=== PATIENT | female | born 1935 | race Caucasian/White ===

== ENCOUNTER 2016-12-05 15:58 | Emergency (ER) | payer OTHER ==
[~2016-12-05] VITALS: Ht 165.1 cm; Wt 63.8 kg
[2016-12-05 16:25] VITALS: TEMP 36.7; Ht 165.1 cm; Wt 63.8 kg
[2016-12-05 16:45] VITALS: O2SAT 96
[2016-12-05] MEDS ORDERED: METOPROLOL TARTRATE 25 MG TAB PO ONE (17:00)
[2016-12-05 17:07] LABS: BASO % 0.4 %; BASO ABS # 0.03 K/uL (0-0.2); COMPLETE YES; EOS % 2.5 %; HEMATOCRIT 43.1 % (37-47); IG% 0.3 %; LYMPH % 37.8 %; LYMPH ABS # 2.97 K/uL (1.2-3.4); MEAN CELL VOLUME 86.4 fL (80-100); MEAN CORPUSCULAR HEMOGLOBIN 29.5 pg (25-34); MEAN CORPUSCULAR HGB CONC 34.1 g/dl (32-36); MEAN PLATELET VOLUME 10.2 fL (7.4-10.4); MONO % 6.2 %; NEUT % 52.8 %; PLATELET COUNT 236 K/uL (130-400); RED BLOOD COUNT 4.99 M/uL (4.2-5.4); WHITE BLOOD COUNT 7.86 K/uL (4.8-10.8)
[2016-12-05] MEDS ORDERED: CYNI1000 INJ (17:07)
[2016-12-05] MEDS ORDERED: TRAV0.00 OPB (17:07)
[2016-12-05] MEDS ORDERED: LISI20TA3 PO (17:07)
[2016-12-05] MEDS ORDERED: LEVO75TA5 PO (17:07)
[2016-12-05] MEDS ORDERED: CHOL1000 PO (17:07)
[2016-12-05] MEDS ORDERED: ASPI81TA28 PO (17:07)
[2016-12-05 17:14] LABS: BLOOD UREA NITROGEN 18 mg/dl (7-18); BUN/CREATININE RATIO 17.8 (10-20); CALCIUM 9.4 mg/dl (8.5-10.1); CARBON DIOXIDE 25 mmol/L (21-32); CHLORIDE 105 mmol/L (98-107); CREATININE 0.99 mg/dl (0.60-1.20); GLUCOSE 148 mg/dl (70-99); POTASSIUM 3.9 mmol/L (3.5-5.1); SODIUM 138 mmol/L (136-145)
[2016-12-05 17:24] LABS: CKMB/CK RATIO 1.3 (0-3.0)
--- NOTE | 2016-12-05 17:29 | DIAGNOSTIC IMAGING REPORT ---
CHEST ONE VIEW PORTABLE HISTORY: 81 years-old Female Evaluate Fever/Sepsis COMPARISON: None available TECHNIQUE: Portable upright AP view of the chest FINDINGS: Cardiac silhouette is upper limits of normal. There is atherosclerosis of the aorta. Mild pulmonary vascular congestion is noted with background interstitial coarsening. There is no pneumothorax. There is mild blunting of the bilateral costophrenic angles. There are patchy alveolar opacities of the medial right and lateral left lung base. Bones are mildly demineralized appear grossly intact. IMPRESSION: 1. Upper limits of normal heart size is present with mild pulmonary vascular congestion and background interstitial coarsening suspicious for pulmonary edema. 2. Patchy alveolar opacities of the lung bases suggest atelectasis or pneumonia with trace effusions. The above report was generated using voice recognition software. It may contain grammatical, syntax or spelling errors. Electronically signed by: Abiel Sequeira M.D. 12/05/2016 5:28 PM Dictated Date/Time: 12/05/2016 5:26 PM
[2016-12-05 17:44] LABS: PROTHROMBIN TIME (PATIENT) 10.7 SECONDS (9.0-12.0)
[2016-12-05] MEDS ORDERED: METOPROLOL TARTRATE 50 MG TAB ONE (18:00)
[2016-12-05] MEDS ORDERED: METO25TA56 PO (18:10)
--- NOTE | 2016-12-05 18:11 | EMERGENCY ROOM VISIT NOTE ---
History Report prepared by Kevin: Bin Trujillo Under the Supervision of: Dr. Keyon Ricci D.O. First contact with patient: 16:12 Stated Complaint: DIZZY/TACHY History of Present Illness The patient is a 81 year old female who presents to the Emergency Room with complaints of dizziness that occurred 1 hour ago. The patient has a history of SVT. She has experienced this intermittently for about a year and a half. She was placed on a Heart Monitor in the past, but it was negative and could never catch an episode. Earlier today, the patient was walking around the mall with her daughter. All of the sudden, she began to feel very dizzy. She sat down and her daughter checked her pulse. She states that it was around 200. She then called the ambulance. Per EMS, the patient's ECG prior to arrival revealed SVT at 230. Per the patient she states that she does not get dizzy very often. She is currently in sinus rhythm. They state that the episode was about 20 minutes long. She is currently taking medication for her thyroid and ASA. She denies any symptoms at this time. Source of History: patient Onset: 1 hour ago Position: other (Global) Symptom Intensity: moderate Quality: other (Dizzy) Timing: resolved Associated Symptoms: No chest pain, No SOB Note: She denies any symptoms at this time. At the time, she felt her heart racing and lightheaded. Review of Systems See HPI for pertinent positives & negatives. A total of 10 systems reviewed and were otherwise negative. Family History Omitted secondary to the patient's age. Social History Smoking Status: Never Smoker Smokeless Tobacco Use: No Alcohol Use: none Drug Use: none Occupation Status: retired Current/Historical Medications Scheduled Aspirin (Aspirin Ec), 81 MG PO DAILY Cholecalciferol (Vitamin D3), 2,000 UNITS PO DAILY Cyanocobalamin (Cyanocobalamin), 1,000 MCG INJ MONTHLY Levothyroxine Sodium (Levothyroxine Sodium), 75 MCG PO DAILY Lisinopril (Prinivil), 20 MG PO DAILY Metoprolol Tartrate (Lopressor) (Lopressor), 0.5 TAB PO BID Travoprost (Travatan Z), 1 DROPS OPB QPM Allergies Coded Allergies: Statins (Unverified Adverse Reaction, Severe, muscle pain, 12/05/16) Risedronate (Unverified Adverse Reaction, Intermediate, loss of tooth, ) Physical Exam Vital Signs Date Time Temp Pulse Resp B/P (MAP) Pulse Ox O2 Delivery O2 Flow Rate FiO2 12/05/16 18:15 67 18 147/73 97 12/05/16 16:45 96 Room Air 12/05/16 16:35 81 12/05/16 16:25 36.7 76 18 160/66 98 Room Air Physical Exam CONSTITUTIONAL/VITAL SIGNS: Reviewed / noted above. GENERAL: Non-toxic in appearance. INTEGUMENTARY: Warm, dry, and [place]. HEAD: Normocephalic. EYES: without scleral icterus or trauma. ENT/OROPHARYNX: clear and moist. LYMPHADENOPATHY/NECK: Is supple without lymphadenopathy or meningismus. RESPIRATORY: Lungs clear and equal. CARDIOVASCULAR: Regular rate and rhythm. GI/ABDOMEN: Soft and nontender. No organomegaly or pulsatile mass. No rebound or guarding. Normal bowel sounds. EXTREMITIES: Warm and well perfused. BACK: No CVA tenderness. NEUROLOGICAL: Intact without focal deficits. PSYCHIATRIC: normal affect. MUSCULOSKELETAL: Normally developed with good muscle tone. Medical Decision & Procedures ER Provider Diagnostic Interpretation: Radiology results as stated below per my review and radiologist interpretation: CHEST ONE VIEW PORTABLE HISTORY: 81 years-old Female Evaluate Fever/Sepsis COMPARISON: None available TECHNIQUE: Portable upright AP view of the chest FINDINGS: Cardiac silhouette is upper limits of normal. There is atherosclerosis of the aorta. Mild pulmonary vascular congestion is noted with background interstitial coarsening. There is no pneumothorax. There is mild blunting of the bilateral costophrenic angles. There are patchy alveolar opacities of the medial right and lateral left lung base. Bones are mildly demineralized appear grossly intact. IMPRESSION: 1. Upper limits of normal heart size is present with mild pulmonary vascular congestion and background interstitial coarsening suspicious for pulmonary edema. 2. Patchy alveolar opacities of the lung bases suggest atelectasis or pneumonia with trace effusions. The above report was generated using voice recognition software. It may contain grammatical, syntax or spelling errors. Electronically signed by: Abiel Sequeira M.D. 12/05/2016 5:28 PM Dictated Date/Time: 12/05/2016 5:26 PM Laboratory Results 12/05/16 14:50 Red Blood Count 4.99, Mean Corpuscular Volume 86.4, Mean Corpuscular Hemoglobin 29.5, Mean Corpuscular Hemoglobin Concent 34.1, Mean Platelet Volume 10.2, Neutrophils (%) (Auto) 52.8, Lymphocytes (%) (Auto) 37.8, Monocytes (%) (Auto) 6.2, Eosinophils (%) (Auto) 2.5, Basophils (%) (Auto) 0.4, Neutrophils # (Auto) 4.15, Lymphocytes # (Auto) 2.97, Monocytes # (Auto) 0.49, Eosinophils # (Auto) 0.20, Basophils # (Auto) 0.03 12/05/16 14:50 Test 12/05/16 14:50 12/05/16 17:23 White Blood Count 7.86 K/uL (4.8-10.8) Red Blood Count 4.99 M/uL (4.2-5.4) Hemoglobin 14.7 g/dL (12.0-16.0) Hematocrit 43.1 % (37-47) Mean Corpuscular Volume 86.4 fL (80-100) Mean Corpuscular Hemoglobin 29.5 pg (25-34) Mean Corpuscular Hemoglobin Concent 34.1 g/dl (32-36) Platelet Count 236 K/uL (130-400) Mean Platelet Volume 10.2 fL (7.4-10.4) Neutrophils (%) (Auto) 52.8 % Lymphocytes (%) (Auto) 37.8 % Monocytes (%) (Auto) 6.2 % Eosinophils (%) (Auto) 2.5 % Basophils (%) (Auto) 0.4 % Neutrophils # (Auto) 4.15 K/uL (1.4-6.5) Lymphocytes # (Auto) 2.97 K/uL (1.2-3.4) Monocytes # (Auto) 0.49 K/uL (0.11-0.59) Eosinophils # (Auto) 0.20 K/uL (0-0.5) Basophils # (Auto) 0.03 K/uL (0-0.2) RDW Standard Deviation 45.1 fL (36.4-46.3) RDW Coefficient of Variation 14.4 % (11.5-14.5) Immature Granulocyte % (Auto) 0.3 % Immature Granulocyte # (Auto) 0.02 K/uL (0.00-0.02) Anion Gap 8.0 mmol/L (3-11) Est Creatinine Clear Calc Drug Dose 38.7 ml/min Estimated GFR () 61.1 Estimated GFR (Non- 52.7 BUN/Creatinine Ratio 17.8 (10-20) Calcium Level 9.4 mg/dl (8.5-10.1) Total Creatine Kinase 119 U/L (26-192) Creatine Kinase MB 1.5 ng/ml (0.5-3.6) Creatine Kinase MB Ratio 1.3 (0-3.0) Troponin I < 0.015 ng/ml (0-0.045) Thyroid Stimulating Hormone (TSH) 1.270 uIu/ml (0.300-4.500) Prothrombin Time 10.7 SECONDS (9.0-12.0) Prothromb Time International Ratio 1.0 (0.9-1.1) Activated Partial Thromboplast Time 27.1 SECONDS (21.0-31.0) Partial Thromboplastin Ratio 1.0 Laboratory results as stated above per my review. 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 ED Course 161: Previous medical records were reviewed. The patient was evaluated in room B2. A complete history and physical examination was performed. 1634: I spoke with Dr. Yg Palmer, at this time. Please see the consultation note. 1637: I spoke with Dr. Erazo - Cardiology, at this time. Please see the consultation note. [id number]: I assessed the patient and updated her on the recommendations from her Gas Distribution Supervisor. 1700: Ordered Lopressor Tab 12.5 mg PO 1800: Ordered Lopressor Tab 50 mg .ROUTE 1815: On reevaluation, the patient is resting. I discussed the results and findings with the patient. She verbalized agreement of the treatment plan. She was discharged home. Medical Decision Differentials considered include acute myocardial infarction, acute coronary syndrome, myocarditis, pericarditis, pericardial effusions /tamponade, esophageal perforation, thoracic aortic dissection, pulmonary embolism, pneumonia, pneumothorax, pancreatitis, shingles, acute cholecystitis, and perforated abdominal viscus. This is a 81-year-old female who presents to the ED with a chief complaint of SVT. The patient was shopping when she suddenly developed lightheadedness and dizziness. The daughter, who is a nurse file machine operator, evaluated the patient. She found the patient's heart rate to be over 200. EMS was called and a 2-lead EKG documented an SVT at a rate of about 240. The patient's SVT lasted for about 20 minutes and then resolved. She has been having some lightheaded episodes recently and is scheduled for a 30 day event monitor in about 2 weeks. The patient is currently asymptomatic. EKG shows a sinus rhythm with a normal rate and occasional PVC without ischemic changes. CBC and complete metabolic panel were normal. Troponin was negative. Glucose was 148. Chest x- ray was negative for acute disease. She does not present with any upper respiratory symptoms. The patient was told the results. I spoke with Dr. Erazo who recommended low-dose beta dao. The patient was started on 12.5 mg of metoprolol. She did not want to stay in the hospital for observation and therefore was discharged. They will follow-up with Dr. Suh and Dr. Ronquillo. Medication Reconcilliation Current Medication List: was personally reviewed by me Blood Pressure Screening Patient's blood pressure: Elevated blood pressure Blood pressure disposition: Elevated BP felt to be situational Consults Time Called: 1630 Consulting Physician: Dr. Yg Lazo [facility] Returned Call: [phone] We discussed the patient's case. They recommended calling the patient's Gas Distribution Supervisor. Additional Consults: Time Called: 163 Consulted Physician: Dr. Erazo - Cardiology Returned Call: [phone] Additional Comments: We discussed the patient's case. They recommended that the safest route is for the patient to be evaluated further as an inpatient, but we can discuss this with the patient and her daughter. Also, we should place her on a low dose beta- dao. Impression Primary Impression: SVT (supraventricular tachycardia) Scribe Attestation The scribe's documentation has been prepared under my direction and personally reviewed by me in its entirety. I confirm that the note above accurately reflects all work, treatment, procedures, and medical decision making performed by me. Departure Information Dispostion Home / Self-Care Prescriptions Metoprolol Tartrate (Lopressor) (Lopressor) 25 Mg Tab 0.5 TAB PO BID for 30 Days, #30 TAB 0 Refills Prov: Keyon Ricci D.O. 12/05/16 Forms IMPORTANT VISIT INFORMATION Patient Instructions My [facility] [address], Treatment for Supraventricular Tachycardia SVT Additional Instructions Lopressor: One half tablet twice a day. Follow-up with your doctors next week. Return for any concerns or worsening.
[2016-12-05 18:15] VITALS: BP 147/73; PULSE 67; O2SAT 97
== END 2016-12-05 18:36 | disposition home or self-care (01) ==
LOC: EDBD 15:58 → C.EDB 16:00
DX: I47.1 Supraventricular tachycardia (principal); Z79.82 Long term (current) use of aspirin; Z79.899 Other long term (current) drug therapy

== ENCOUNTER 2023-03-03 17:19 | Inpatient (IN) ==
--- NOTE | 2023-03-03 17:36 | ED Triage Note ---
Date of Service March 03, 2023 History of Present Illness This patient was briefly evaluated while in triage. An abbreviated physical exam was performed. This patient is a 87-year-old Female who presents to the ED for evaluation of a cough, "rattling", in chest, possible afib, weak. No appetite and not taking her medicine. hx SVT before. Here with daughter. Physical Exam GENERAL: 87 year old female. In no acute distress. SKIN: No lesions or rashes. HEART: Regular rate and rhythm. LUNGS: Clear to auscultation. NEURO: Alert and oriented. No deficits. MUSCULOSKELETAL: No deformities to inspection of the extremities. PSYCH: Patient is pleasant and answers all questions appropriately. Initial orders for labs and / or imaging were placed and patient was placed in the waiting area until a bed is available. Please see further documentation for the full ED course.
--- NOTE | 2023-03-03 18:09 | XRay Report ---
XR chest 1V not portable HISTORY: Cough COMPARISON: Chest 12/05/2016. FINDINGS: No pneumothorax. No pleural effusions. Scoliosis of the lumbar spine again noted. The heart is normal in size. There is diffuse reticulonodular interstitial thickening most pronounced at the l breanne bases. This is similar to the prior study and is therefore likely chronic. No new focal lung cons olidations to suggest a pneumonia. No evidence for pulmonary edema. There are calcifications within t he aortic knob. IMPRESSION: 1. Diffuse reticulonodular interstitial thickening which is similar to the prior study. Therefore, th is suggests chronic interstitial lung disease. 2. No new focal lung consolidations to suggest a pneumonia. ACT 112: Negative or not required by law. Electronically signed by: Troy Parra M.D. 03/03/2023 6:08 PM
[2023-03-03 18:14] LABS: Basophils # (auto) 0.02 K/uL (0.00-0.20); Basophils % (auto) 0.3 %; Eosinophils # (auto) 0.03 K/uL (0.00-0.50); Eosinophils % (auto) 0.5 %; Hematocrit (blood only) 43.6 % (37.0-47.0); Hemoglobin 13.8 g/dl (12.0-16.0); Immature Granulocytes # (auto) 0.01 K/uL (0.01-0.20); Immature Granulocytes % (auto) 0.2 %; Lymphocytes % (auto) 18.3 %; Mean Corpuscular Hgb Conc 31.7 g/dL (32.0-36.0); Mean Corpuscular Volume 85.2 fL (80.0-100.0); Mean Platelet Volume 10.2 fL (9.4-12.4); Monocytes # (auto) 0.44 K/uL (0.11-0.59); Monocytes % (auto) 7.3 %; Neutrophils % (auto) 73.4 %; Platelet Count 213 K/uL (130-400); RDW Coefficient of Variation 15.9 % (11.5-14.5); RDW Standard Deviation 49.9 fL (36.4-46.3); Red Blood Count 5.12 M/uL (4.20-5.40)
[2023-03-03 18:31] LABS: Troponin I High Sensitivity 7.7 pg/ml (0-14)
[2023-03-03 18:38] LABS: Alanine Aminotransferase 6 U/L (7-52); Albumin Globulin Ratio 1.1 (0.9-2); Albumin Level 4.2 gm/dl (3.4-5.0); Alkaline Phosphatase 77 U/L (34-104); Anion Gap 9 (3-11); BUN Creatinine Ratio 14.5 (10-20); Bilirubin,Total 0.6 mg/dl (0.2-1.0); Blood Urea Nitrogen 11 mg/dl (6-23); Calcium 9.8 mg/dl (8.6-10.3); Carbon Dioxide 25 mmol/L (21-32); Chloride 103 mmol/L (98-107); Est GFR (African American) 80.6 ml/min; Est GFR (Non-African American) 69.5 ml/min; Glucose 143 mg/dl (70-99(Fasting)); Lipase 18 U/L (11-82); Sodium 137 mmol/L (136-145); Total Protein 8.2 gm/dl (6.0-8.3)
[2023-03-03 18:51] LABS: Adenovirus PCR Not Detected (NotDetected); Bordetella parapertussis PCR Not Detected (NotDetected); Bordetella pertussis PCR Not Detected (NotDetected); Chlamydia pneumoniae PCR Not Detected (NotDetected); Coronavirus 229E PCR Not Detected (NotDetected); Coronavirus CoV-2 (COVID19)PCR Not Detected (NotDetected); Coronavirus HKU1 PCR Not Detected (NotDetected); Coronavirus NL63 PCR Not Detected (NotDetected); Coronavirus OC43PCR Not Detected (NotDetected); Human Metapneumovirus PCR Not Detected (NotDetected); Influenza A PCR Not Detected (NotDetected); Influenza B PCR Not Detected (NotDetected); Mycoplasma pneumoniae PCR Not Detected (NotDetected); Parainfluenza Virus 1 PCR Not Detected (NotDetected); Parainfluenza Virus 2 PCR Not Detected (NotDetected); Parainfluenza Virus 3 PCR Not Detected (NotDetected); Respiratory Syncytial VirusPCR Not Detected (NotDetected); Rhinovirus/Enterovirus PCR Not Detected (NotDetected)
[2023-03-03 18:52] LABS: Thyroid Stimulating Hormone 1.721 uIu/ml (0.300-4.500)
[2023-03-03 19:08] LABS: Parainfluenza Virus 4 PCR DETECTED (NotDetected)
[2023-03-03] MEDS ORDERED: ONDANSETRON INJ 2 MG/ML 2 ML VIAL IV STA (20:25)
[2023-03-03] MEDS ORDERED: ACETAMINOPHEN 1,000 MG/100 ML VIAL IV STA (20:25)
[2023-03-03] MEDS ORDERED: SODIUM CHLORIDE 0.9% 500 ML IV ONE (20:25)
[2023-03-03] MEDS ORDERED: FAMOTIDINE 20MG IV PUSH 20 MG/5 ML SYR IV STA (20:25)
--- NOTE | 2023-03-03 20:47 | Emergency Department Note ---
Impression & Plan Infection due to parainfluenza virus 4, Acute UTI, Weakness ED Provider Note NAME: ELVIE MURRELL AGE: 87 SEX: F ARRIVES VIA: Walk-In INFORMANT: Patient ED PROVIDER(S): Louis Patel MD CHIEF COMPLAINT: Cough, weakness. PLAN: Disposition: Admit MEDICAL DECISION MAKING: The patient is a pleasant 87-year-old woman with a past medical history of hypothyroidism, svt who presents to the emergency department via walk-in, accompanied by her daughter who is a nurse rehabilitation therapist for evaluation of cough and generalized weakness which the patient started reports she noticed today for the first time and so suspect symptoms are evolving past 24 hours. She also noted the patient has been urinary frequency and wonders if she may have a urinary tract infection. She also noticed her heart rate was irregular and wondering if her SVT had returned or if she developed A-fib. Patient reported nausea prior to arrival. They deny vomiting or diarrhea. On evaluation the patient is fatigued appearing but no distress, afebrile stable vital signs. She appears clinically dry. EKG without overt acute ischemia. CXR negative for acute cardiopulmonary process per my personal preliminary review/interpretation. WBC, H/H and platelets within normal limits. Chemistry without metabolic acidosis per electrolytes and LFTs without significant abnormality. Head CT upon symptoms and, within normal TSH within normal limits. UA appears contaminated with epithelial cells however with 4+ bacteria and WBCs and given the patient's urinary frequency will be to proceed with treatment at this time. Treatment initiated with IV ceftriaxone. Respiratory viral panel/[employer] was positive for parainfluenza 4. Following IV fluid hydration, famotidine, zofran, and apap the patient still remained weak where she required significant assistance even to use the bedside commode and therefore patient's daughter does agree with plan for admission for further management given the patient lives at home alone. Case was discussed with Dr. Harden, [facility] hospitalist who will evaluate the patient for admission. Triage Nursing notes reviewed and agree them. Prior/external medical records reviewed Vital Signs: reviewed Differential diagnosis: Infection, dehydration, metabolic abnormality, hypo/hyperglycemia, electrolyte disturbance, anemia, hypoxia, cardiac sources, intracerebral event, toxicologic, neurologic, as well as other pathologies. ER treatment provided: See below. Diagnostics interpreted by me: ECG: Sinus rhythm with occasional PVCs, 86 bpm, no overt ST ovation or depression, QTc 430 Cimduo 70. Cardiac Monitoring: An order for continuous cardiac monitoring was placed and demonstrated sinus rhythm with occasional PVCs, 86 bpm. Laboratory studies: See below Imaging studies: See below Consultation(s): Case was discussed with Dr. Harden, [facility] hospitalist who will evaluate the patient for admission. HPI: The patient is a pleasant 87-year-old woman with a past medical history of hypothyroidism, svt who presents to the emergency department via walk-in, accompanied by her daughter who is a nurse rehabilitation therapist for evaluation of cough and generalized weakness which the patient started reports she noticed today for the first time and so suspect symptoms are evolving past 24 hours. She also noted the patient has been urinary frequency and wonders if she may have a urinary tract infection. She also noticed her heart rate was irregular and wondering if her SVT had returned or if she developed A-fib. Patient reported nausea prior to arrival. They deny vomiting or diarrhea. ROS: See above HPI for pertinent positives & negatives. A total of 10 systems reviewed and were otherwise negative. VITALS:See Below PHYSICAL EXAMINATION: GENERAL: Awake, alert, fatigued-appearing, in no distress HENT: Normocephalic, atraumatic. Oropharynx with dry mucous membranes and otherwise unremarkable. EYES: Normal conjunctiva. Sclera non-icteric. NECK: Supple. No nuchal rigidity. FROM. No JVD. RESPIRATORY: Clear to auscultation. CARDIAC: Regular rate, normal rhythm. Extremities warm and well perfused. Pulses equal. ABDOMEN: Soft, non-distended. No tenderness to palpation. No rebound or guarding. No masses. RECTAL: Deferred. MUSCULOSKELETAL: Chest examination reveals no tenderness. The back is symmetrical on inspection without obvious abnormality. There is no CVA tenderness to palpation. No joint edema. LOWER EXTREMITIES: Calves are equal size bilaterally and non-tender. No edema. No discoloration. NEURO: Normal sensorium. No sensory or motor deficits noted. SKIN: No rash or jaundice noted. Louis Patel MD Past Med/Surg History Medical History (Updated 03/04/23 @ 03:06 by Louis Patel MD) SVT (supraventricular tachycardia) Hypothyroidism Social History Smoking Status: Never smoker Preferred Language: Danish Feels Safe at Home: Yes Allergies Allergies Allergy/AdvReac Type Severity Reaction Status Date / Time Nbbbilf-SNP-[id number] Reductase AdvReac Severe muscle pain Verified 03/03/23 20:14 Inhibitor [Gjbekmm-Ywq-Jyo Reductase Inhibitor] risedronate sodium AdvReac Intermediate loss of Verified 03/03/23 20:14 tooth Home Meds Home Medications Medication Instructions Recorded Confirmed cholecalciferol (vitamin D3) 50 50 mcg PO DAILY 03/03/23 03/03/23 mcg (2,000 unit) capsule (Vitamin D3) cyanocobalamin (vitamin B-12) 1,000 mcg subcut MONTHLY 03/03/23 03/03/23 1,000 mcg/mL injection solution levothyroxine 75 mcg tablet 75 mcg PO DAILY 03/03/23 03/03/23 metoprolol tartrate 25 mg tablet 25 mg PO DAILY 03/03/23 03/03/23 Results & Data (ED) Vital Signs Vital Signs - 24 hr 03/03/23 17:33 03/03/23 19:39 03/03/23 19:47 Temperature 36.7 C Temperature Source Temporal Artery Scan Pulse Rate 95 H 73 Pulse Rate [Apical] 75 Pulse Rate from SpO2 Sensor 73 Respiratory Rate 17 24 23 Respiratory Effort / Characteristics Non-Labored Spontaneous Respiratory Depth Normal Normal Blood Pressure 167/96 H Blood Pressure [Left Arm] 159/84 H Blood Pressure Mean 119 Blood Pressure Mean [Left Arm] 109 Blood Pressure Position Sitting Pulse Oximetry 95 97 96 Oxygen Delivery Method Room Air Room Air Sepsis Recent Fever Within 48 Hours No Sepsis New/Unexplained Change in Mental Status No Sepsis Action Taken by Nursing No Action Required 03/03/23 19:50 03/03/23 20:00 03/03/23 21:00 Temperature Temperature Source Pulse Rate 73 74 75 Pulse Rate [Apical] Pulse Rate from SpO2 Sensor 74 70 Respiratory Rate 19 18 Respiratory Effort / Characteristics Respiratory Depth Blood Pressure Blood Pressure [Left Arm] Blood Pressure Mean Blood Pressure Mean [Left Arm] Blood Pressure Position Pulse Oximetry 96 96 Oxygen Delivery Method Sepsis Recent Fever Within 48 Hours Sepsis New/Unexplained Change in Mental Status Sepsis Action Taken by Nursing 03/03/23 21:02 03/03/23 21:02 03/03/23 21:02 Temperature Temperature Source Pulse Rate 66 Pulse Rate [Apical] 65 Pulse Rate from SpO2 Sensor 65 Respiratory Rate 18 17 Respiratory Effort / Characteristics Respiratory Depth Blood Pressure 163/68 H Blood Pressure [Left Arm] 163/68 H Blood Pressure Mean 126 Blood Pressure Mean [Left Arm] 99 Blood Pressure Position Pulse Oximetry 96 95 Oxygen Delivery Method Room Air Sepsis Recent Fever Within 48 Hours Sepsis New/Unexplained Change in Mental Status Sepsis Action Taken by Nursing 03/03/23 21:05 03/03/23 22:00 03/03/23 22:00 Temperature Temperature Source Pulse Rate 56 L Pulse Rate [Apical] Pulse Rate from SpO2 Sensor 57 L Respiratory Rate 17 Respiratory Effort / Characteristics Respiratory Depth Blood Pressure 119/58 L Blood Pressure [Left Arm] Blood Pressure Mean 84 Blood Pressure Mean [Left Arm] Blood Pressure Position Pulse Oximetry 96 92 Oxygen Delivery Method Room Air Sepsis Recent Fever Within 48 Hours Sepsis New/Unexplained Change in Mental Status Sepsis Action Taken by Nursing 03/03/23 23:00 03/03/23 23:42 03/03/23 23:42 Temperature Temperature Source Pulse Rate 67 55 L Pulse Rate [Apical] Pulse Rate from SpO2 Sensor 55 L Respiratory Rate 17 19 Respiratory Effort / Characteristics Respiratory Depth Blood Pressure 108/55 L Blood Pressure [Left Arm] Blood Pressure Mean 85 Blood Pressure Mean [Left Arm] Blood Pressure Position Pulse Oximetry 93 Oxygen Delivery Method Sepsis Recent Fever Within 48 Hours Sepsis New/Unexplained Change in Mental Status Sepsis Action Taken by Nursing 03/03/23 23:48 03/04/23 00:00 03/04/23 00:00 Temperature Temperature Source Pulse Rate 58 L 51 L Pulse Rate [Apical] Pulse Rate from SpO2 Sensor 51 L Respiratory Rate 18 Respiratory Effort / Characteristics Respiratory Depth Blood Pressure 135/64 Blood Pressure [Left Arm] Blood Pressure Mean 97 Blood Pressure Mean [Left Arm] Blood Pressure Position Pulse Oximetry 95 Oxygen Delivery Method Sepsis Recent Fever Within 48 Hours Sepsis New/Unexplained Change in Mental Status Sepsis Action Taken by Nursing 03/04/23 01:00 03/04/23 01:00 03/04/23 02:00 Temperature Temperature Source Pulse Rate 63 54 L Pulse Rate [Apical] Pulse Rate from SpO2 Sensor 58 L 53 L Respiratory Rate 18 16 Respiratory Effort / Characteristics Respiratory Depth Blood Pressure 149/74 H Blood Pressure [Left Arm] Blood Pressure Mean 89 Blood Pressure Mean [Left Arm] Blood Pressure Position Pulse Oximetry 90 94 Oxygen Delivery Method Sepsis Recent Fever Within 48 Hours Sepsis New/Unexplained Change in Mental Status Sepsis Action Taken by Nursing 03/04/23 02:32 03/04/23 02:32 03/04/23 02:51 Temperature Temperature Source Pulse Rate 57 L Pulse Rate [Apical] 56 L Pulse Rate from SpO2 Sensor 57 L Respiratory Rate 17 Respiratory Effort / Characteristics Respiratory Depth Blood Pressure 134/61 Blood Pressure [Left Arm] Blood Pressure Mean 67 Blood Pressure Mean [Left Arm] Blood Pressure Position Pulse Oximetry 95 Oxygen Delivery Method Sepsis Recent Fever Within 48 Hours Sepsis New/Unexplained Change in Mental Status Sepsis Action Taken by Nursing Laboratory Data Attestation: I reviewed the patient's lab results. 03/03/23 17:45 03/03/23 20:09 Lab Results 03/03/23 03/03/23 03/03/23 Range/Units 17:45 17:53 20:09 WBC 6.00 (4.8-10.8) K/ul RBC 5.12 (4.20-5.40) M/uL Hgb 13.8 (12.0-16.0) g/dl Hct 43.6 (37.0-47.0) % MCV 85.2 (80.0-100.0) fL MCH 27.0 (25.0-34.0) pg MCHC 31.7 L (32.0-36.0) g/dL RDW Std Deviation 49.9 H (36.4-46.3) fL RDW Coeff of Wong 15.9 H (11.5-14.5) % Plt Count 213 (130-400) K/uL MPV 10.2 (9.4-12.4) fL Immature Gran % (Auto) 0.2 % Neut % (Auto) 73.4 % Lymph % (Auto) 18.3 % [facility] % (Auto) 7.3 % Eos % (Auto) 0.5 % Baso % (Auto) 0.3 % Neut # (Auto) 4.40 (1.40-6.50) K/uL Lymph # (Auto) 1.10 L (1.20-3.40) K/uL [facility] # (Auto) 0.44 (0.11-0.59) K/uL Eos # (Auto) 0.03 (0.00-0.50) K/uL Baso # (Auto) 0.02 (0.00-0.20) K/uL Immature Gran # (Auto) 0.01 (0.01-0.20) K/uL PT Cancelled 11.1 INR Cancelled 1.0 APTT Cancelled 30.1 PTT Ratio Cancelled 1.1 Sodium 137 (136-145) mmol/L Potassium TNP 4.0 Chloride 103 (98-107) mmol/L Carbon Dioxide 25 (21-32) mmol/L Anion Gap 9 (3-11) BUN 11 (6-23) mg/dl Creatinine 0.76 (0.6-1.2) mg/dl Est Cr Clr Drug Dosing Not Reportable Est GFR ( Amer) 80.6 ml/min Est GFR (Non-Af Amer) 69.5 ml/min BUN/Creatinine Ratio 14.5 (10-20) Glucose 143 H (70-99(Fasting)) mg/dl Calcium 9.8 (8.6-10.3) mg/dl Magnesium 2.0 (1.7-2.4) mg/dl Total Bilirubin 0.6 (0.2-1.0) mg/dl AST TNP 16 ALT 6 L (7-52) U/L Alkaline Phosphatase 77 (34-104) U/L Troponin I High Sens 7.7 (0-14) pg/ml Total Protein 8.2 (6.0-8.3) gm/dl Albumin 4.2 (3.4-5.0) gm/dl Globulin 4.0 (2.5-4.0) gm/dl Albumin/Globulin Ratio 1.1 (0.9-2) Lipase 18 (11-82) U/L TSH 1.721 (0.300-4.500) uIu/ml Urine Color Urine Appearance (Clear) Urine pH (4.5-7.5) Ur Specific Hammond (1.000-1.030) Urine Protein (Negative) Urine Glucose (UA) (Negative) Urine Ketones (Negative) Urine Blood (Negative) Urine Nitrite (Negative) Urine Bilirubin (Negative) Urine Urobilinogen (Negative) Ur Leukocyte Esterase (Negative) Urine WBC (Auto) (0-5) /hpf Urine RBC (Auto) (0-4) /hpf U Hyaline Cast (Auto) (0-5) /lpf U Epithel Cells (Auto) (0-5) /lpf Urine Bacteria (Auto) (Negative) Adenovirus (PCR) Not Detected (NotDetected) B. pertussis DNA (PCR) Not Detected (NotDetected) B.parapertussis DNA PCR Not Detected (NotDetected) C. pneumoniae DNA (PCR) Not Detected (NotDetected) Coronavirus OC43 (PCR) Not Detected (NotDetected) Coronavirus HKU1 (PCR) Not Detected (NotDetected) Coronavirus 229E (PCR) Not Detected (NotDetected) SARS-CoV-2 (PCR) Not Detected (NotDetected) Coronavirus NL63 (PCR) Not Detected (NotDetected) Human Metapneumovir PCR Not Detected (NotDetected) Influenza Type A (PCR) Not Detected (NotDetected) Influenza Type B (PCR) Not Detected (NotDetected) M. pneumoniae (PCR) Not Detected (NotDetected) Parainfluenza 1 (PCR) Not Detected (NotDetected) Parainfluenza 2 (PCR) Not Detected (NotDetected) Parainfluenza 3 (PCR) Not Detected (NotDetected) Parainfluenza 4 (PCR) DETECTED A* (NotDetected) RSV (PCR) Not Detected (NotDetected) Entero/Rhino (PCR) Not Detected (NotDetected) 03/03/23 Range/Units 22:26 WBC (4.8-10.8) K/ul RBC (4.20-5.40) M/uL Hgb (12.0-16.0) g/dl Hct (37.0-47.0) % MCV (80.0-100.0) fL MCH (25.0-34.0) pg MCHC (32.0-36.0) g/dL RDW Std Deviation (36.4-46.3) fL RDW Coeff of Wong (11.5-14.5) % Plt Count (130-400) K/uL MPV (9.4-12.4) fL Immature Gran % (Auto) % Neut % (Auto) % Lymph % (Auto) % [facility] [place] % (Auto) % Eos % (Auto) % Baso % (Auto) % Neut # (Auto) (1.40-6.50) K/uL Lymph # (Auto) (1.20-3.40) K/uL [facility] # (Auto) (0.11-0.59) K/uL Eos # (Auto) (0.00-0.50) K/uL Baso # (Auto) (0.00-0.20) K/uL Immature Gran # (Auto) (0.01-0.20) K/uL PT INR APTT PTT Ratio Sodium (136-145) mmol/L Potassium Chloride (98-107) mmol/L Carbon Dioxide (21-32) mmol/L Anion Gap (3-11) BUN (6-23) mg/dl Creatinine (0.6-1.2) mg/dl Est Cr Clr Drug Dosing Est GFR ( Amer) ml/min Est GFR (Non-Af Amer) ml/min BUN/Creatinine Ratio (10-20) Glucose (70-99(Fasting)) mg/dl Calcium (8.6-10.3) mg/dl Magnesium (1.7-2.4) mg/dl Total Bilirubin (0.2-1.0) mg/dl AST ALT (7-52) U/L Alkaline Phosphatase (34-104) U/L Troponin I High Sens (0-14) pg/ml Total Protein (6.0-8.3) gm/dl Albumin (3.4-5.0) gm/dl Globulin (2.5-4.0) gm/dl Albumin/Globulin Ratio (0.9-2) Lipase (11-82) U/L TSH (0.300-4.500) uIu/ml Urine Color Yellow Urine Appearance Turbid A (Clear) Urine pH 6.0 (4.5-7.5) Ur Specific Hammond 1.022 (1.000-1.030) Urine Protein 1+ H (Negative) Urine Glucose (UA) Negative (Negative) Urine Ketones 1+ H (Negative) Urine Blood 2+ H (Negative) Urine Nitrite Negative (Negative) Urine Bilirubin Negative (Negative) Urine Urobilinogen Negative (Negative) Ur Leukocyte Esterase 2+ H (Negative) Urine WBC (Auto) >30 H (0-5) /hpf Urine RBC (Auto) 10-30 H (0-4) /hpf U Hyaline Cast (Auto) 1-5 (0-5) /lpf U Epithel Cells (Auto) >30 H (0-5) /lpf Urine Bacteria (Auto) 4+ H (Negative) Adenovirus (PCR) (NotDetected) B. pertussis DNA (PCR) (NotDetected) B.parapertussis DNA PCR (NotDetected) C. pneumoniae DNA (PCR) (NotDetected) Coronavirus OC43 (PCR) (NotDetected) Coronavirus HKU1 (PCR) (NotDetected) Coronavirus 229E (PCR) (NotDetected) SARS-CoV-2 (PCR) (NotDetected) Coronavirus NL63 (PCR) (NotDetected) Human Metapneumovir PCR (NotDetected) Influenza Type A (PCR) (NotDetected) Influenza Type B (PCR) (NotDetected) M. pneumoniae (PCR) (NotDetected) Parainfluenza 1 (PCR) (NotDetected) Parainfluenza 2 (PCR) (NotDetected) Parainfluenza 3 (PCR) (NotDetected) Parainfluenza 4 (PCR) (NotDetected) RSV (PCR) (NotDetected) Entero/Rhino (PCR) (NotDetected) Administered Medications Lactated Ringer's (Lr) 1,000 mls @ 60 mls/hr IV .[id number] ONE Stop: 03/04/23 17:58 Last Admin: 03/04/23 02:31 Dose: 60 mls/hr Documented By: ACC Discontinued Medications Famotidine (Pepcid 20mg Iv Push) 20 mg in 5 mls @ 2.5 mls/min IV NOW STA Stop: 03/03/23 20:26 Last Admin: 03/03/23 20:56 Dose: 2.5 mls/min Documented By: DS Acetaminophen (Ofirmev) 1,000 mg in 100 mls @ 400 mls/hr IV NOW STA Stop: 03/03/23 20:39 Last Infusion: 03/03/23 21:17 Dose: Infused Documented By: Admin: 03/03/23 20:56 Dose: 400 mls/hr Documented By: DS Sodium Chloride (Nss) 500 mls @ 999 mls/hr IV .Q31M ONE Stop: 03/03/23 20:55 Last Infusion: 03/03/23 22:58 Dose: Infused Documented By: Admin: 03/03/23 20:56 Dose: 999 mls/hr Documented By: DS Ceftriaxone Sodium (Rocephin) 2,000 mg in 50 mls @ 100 mls/hr IV NOW STA Stop: 03/03/23 23:27 Last Infusion: 03/04/23 00:39 Dose: Infused Documented By: Admin: 03/03/23 23:43 Dose: 100 mls/hr Documented By: ACC Ondansetron HCl (Ondansetron Inj 2 Mg/Ml 2 Ml Vial) 4 mg IV NOW STA Stop: 03/03/23 20:26 Last Admin: 03/03/23 20:56 Dose: 4 mg Documented By: DS Imaging Data Radiologist's Impression: Chest X-Ray 03/03/23 17:36 XR chest 1V not portable HISTORY: Cough COMPARISON: Chest 12/05/2016. FINDINGS: No pneumothorax. No pleural effusions. Scoliosis of the lumbar spine again noted. The heart is normal in size. There is diffuse reticulonodular interstitial thickening most pronounced at the lung bases. This is similar to the prior study and is therefore likely chronic. No new focal lung consolidations to suggest a pneumonia. No evidence for pulmonary edema. There are calcifications within the aortic knob. IMPRESSION: 1. Diffuse reticulonodular interstitial thickening which is similar to the prior study. Therefore, this suggests chronic interstitial lung disease. 2. No new focal lung consolidations to suggest a pneumonia. ACT 112: Negative or not required by law. Electronically signed by: Troy Parra M.D. 03/03/2023 6:08 PM Discharge Plan Visit Data Chief Complaint: Flu Like Symptoms Stated Complaint: FEVER, COUGH, CHEST PAIN, NAUSEA, SVT, NO APPETITE ED Provider: Louis Patel Discharge Problem: Infection due to parainfluenza virus 4, Acute UTI, Weakness Forms Stand Alone Forms: My [employer] Prescriptions Prescriptions: No Action levothyroxine 75 mcg tablet 75 mcg PO DAILY Rx Instructions: PER PT'S DAUGHTER "DOESN'T REMEMBER TO TAKE MEDS". cyanocobalamin (vitamin B-12) 1,000 mcg/mL solution 1,000 mcg subcut MONTHLY Rx Instructions: PER PT'S DAUGHTER "HAD THE 1ST WEEK OF February,". metoprolol tartrate 25 mg tablet 25 mg PO DAILY Rx Instructions: PER PT'S DAUGHTER "DOESN'T REMEMBER TO TAKE MEDS". cholecalciferol (vitamin D3) [Vitamin D3] 50 mcg (2,000 unit) Capsule 50 mcg PO DAILY Rx Instructions: PER PT'S DAUGHTER "DOESN'T REMEMBER TO TAKE MEDS". Referrals Referrals: Taqueria Ronquillo MD [Primary Care Provider] -
[2023-03-03 21:17] LABS: Partial Thromboplastin Ratio 1.1; Partial Thromboplastin Time 30.1 Seconds (21.0-31.0); Prothrombin Time 11.1 Seconds (9.0-12.0)
[2023-03-03 22:43] LABS: Appearance Urine Turbid (Clear); Bacteria Urine Automated 4+ (Negative); Bilirubin Urine Negative (Negative); Blood Urine 2+ (Negative); Color Urine Yellow; Epithelial Cell Urine Auto >30 /lpf (0-5); Glucose Urine UA Negative (Negative); Ketones Urine 1+ (Negative); Leukocyte Esterase Urine 2+ (Negative); Nitrite Urine Negative (Negative); Protein Urine 1+ (Negative); Specific Gravity Urine 1.022 (1.000-1.030); Urobilinogen Urine Negative (Negative); WBC Urine Automated >30 /hpf (0-5)
[2023-03-03] MEDS ORDERED: cefTRIAXone SODIUM 2,000 MG/50 ML BAG IV STA (22:58)
--- NOTE | 2023-03-04 01:11 | History & Physical Report ---
Date of Service March 04, 2023 Assessment & Plan (1) Weakness: Plan: Multifactorial Complicated UTI, no sepsis for now Parainfluenza infection Irregular pulse possibly from PVCs hx PVST mild AR hypertension, BP elevated upon arrival at the ER, currently stable hyperlipidemia/statin intolerance DM 2 diet-controlled, well-controlled as of recent hemoglobin A1c of December 2022 hypothyroidism, euthyroid as of today's TSH level dementia Medical telemetry given arrhythmia concerns Urine CS, Ceftriaxone Supportive management for parainfluenza infection ISS BG goal 1 10-1 40, carb count coverage PT OT eval DVT prophylaxis with Lovenox subcu DNR as per patient's prior directives as per daughter/POA, . Lisa Gustavo. She requests updates from providers thru [phone]. Text document was generated using [employer] voice recognition software. It may contain grammatical or spelling errors. Kindly contact undersigned for clarification of any documentation item in question. History of Present Illness Chief Complaint: I do not know as per patient Cough, congestion, weakness, irregular pulse as per daughter Primary Care Provider: Taqueria Ronquillo MD History obtained from patient, family, and records. Limited history from patient secondary to dementia. Medical history significant for PSVT, mild AR, hypertension, hyperlipidemia/statin intolerance DM 2 diet-controlled, hypothyroidism, dementia. Patient noted to have cough symptoms at home the last few days. Unable to expectorate. Increasing weakness. Patient denies chest pain, SOB, abdominal pain, dysuria symptoms. Patient's pulse felt irregular as per patient daughter who is a AC[employer] OPERATOR. Patient brought to the ER for evaluation. IV ceftriaxone administered at the ER Patient has no recollection of events prior to arrival at the ER. 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 Allergies Allergy/AdvReac Type Severity Reaction Status Date / Time [id number] Reductase AdvReac Severe muscle pain Verified 03/03/23 20:14 Inhibitor [Flffhtz-Zaf-Ias Reductase Inhibitor] risedronate sodium AdvReac Intermediate loss of Verified 03/03/23 20:14 tooth Home Medications Medication Instructions Recorded Confirmed Type cholecalciferol (vitamin D3) 50 50 mcg PO DAILY 03/03/23 03/03/23 History mcg (2,000 unit) capsule (Vitamin D3) cyanocobalamin (vitamin B-12) 1,000 mcg subcut MONTHLY 03/03/23 03/03/23 History 1,000 mcg/mL injection solution levothyroxine 75 mcg tablet 75 mcg PO DAILY 03/03/23 03/03/23 History metoprolol tartrate 25 mg tablet 25 mg PO DAILY 03/03/23 03/03/23 History Past Med/Surg History Medical History (Updated 03/04/23 @ 03:06 by Louis Patel MD) SVT (supraventricular tachycardia) Hypothyroidism Social History Smoking Status: Former smoker Hx Alcohol Use: No Hx Substance Use: No Preferred Language: Niuean Communication Ability: Effective Fine Patcher Required: No Beliefs That Will Affect Care: None Feels Safe at Home: Yes Safety Concerns: Feels Safe At This Time Review of Systems Review of Systems: Could not be reliably obtained secondary to dementia Physical Exam Physical Exam: GENERAL: Comfortable, pleasant, demented, no respiratory distress SKIN: Normal color, warm HEENT: [place] palpebral conjunctivae, no ptosis, dry buccal mucosa NECK : Supple, no tenderness CHEST : Decreased breath sounds, no tenderness HEART : Bradycardic, systolic murmur ABDOMEN: Some distention, nontender EXTREMITIES : No LE swelling/tenderness, no other conspicuous deformities noted NEUROLOGIC : Demented, no facial asymmetry, gait and stance not assessed Results & Data Results & Data Vital Signs (Past 12 Hours) Vital Signs Temp Pulse Pulse Resp BP BP Pulse Ox 03/03/23 23:48 58 L 03/03/23 22:00 56 L 17 92 03/03/23 22:00 119/58 L 03/03/23 21:05 96 03/03/23 21:02 163/68 H 03/03/23 21:02 66 17 95 03/03/23 21:02 65 18 163/68 H 96 03/03/23 21:00 75 18 96 03/03/23 20:00 74 19 96 03/03/23 19:50 73 03/03/23 19:47 73 23 96 03/03/23 19:39 75 24 159/84 H 97 03/03/23 17:33 36.7 C 95 H 17 167/96 H 95 O2 Del Method 03/03/23 23:48 03/03/23 22:00 03/03/23 22:00 03/03/23 21:05 Room Air 03/03/23 21:02 03/03/23 21:02 03/03/23 21:02 Room Air 03/03/23 21:00 03/03/23 20:00 03/03/23 19:50 03/03/23 19:47 03/03/23 19:39 Room Air 03/03/23 17:33 Room Air Laboratory Results Laboratory Results WBC 6.00 K/ul (4.8-10.8) 03/03/23 17:45 RBC 5.12 M/uL (4.20-5.40) 03/03/23 17:45 Hgb 13.8 g/dl (12.0-16.0) 03/03/23 17:45 Hct 43.6 % (37.0-47.0) 03/03/23 17:45 MCV 85.2 fL (80.0-100.0) 03/03/23 17:45 MCH 27.0 pg (25.0-34.0) 03/03/23 17:45 MCHC 31.7 g/dL (32.0-36.0) L 03/03/23 17:45 RDW Std Deviation 49.9 fL (36.4-46.3) H 03/03/23 17:45 RDW Coeff of Wong 15.9 % (11.5-14.5) H 03/03/23 17:45 Plt Count 213 K/uL (130-400) 03/03/23 17:45 MPV 10.2 fL (9.4-12.4) 03/03/23 17:45 Immature Gran % (Auto) 0.2 % 03/03/23 17:45 Neut % (Auto) 73.4 % 03/03/23 17:45 Lymph % (Auto) 18.3 % 03/03/23 17:45 [place] % (Auto) 7.3 % 03/03/23 17:45 Eos % (Auto) 0.5 % 03/03/23 17:45 Baso % (Auto) 0.3 % 03/03/23 17:45 Neut # (Auto) 4.40 K/uL (1.40-6.50) 03/03/23 17:45 Lymph # (Auto) 1.10 K/uL (1.20-3.40) L 03/03/23 17:45 [place] # (Auto) 0.44 K/uL (0.11-0.59) 03/03/23 17:45 Eos # (Auto) 0.03 K/uL (0.00-0.50) 03/03/23 17:45 Baso # (Auto) 0.02 K/uL (0.00-0.20) 03/03/23 17:45 Immature Gran # (Auto) 0.01 K/uL (0.01-0.20) 03/03/23 17:45 PT 11.1 Seconds (9.0-12.0) 03/03/23 20:09 INR 1.0 (0.9-1.1) 03/03/23 20:09 APTT 30.1 Seconds (21.0-31.0) 03/03/23 20:09 PTT Ratio 1.1 03/03/23 20:09 Sodium 137 mmol/L (136-145) 03/03/23 17:45 Potassium 4.0 mmol/L (3.5-5.1) 03/03/23 20:09 Chloride 103 mmol/L (98-107) 03/03/23 17:45 Carbon Dioxide 25 mmol/L (21-32) 03/03/23 17:45 Anion Gap 9 (3-11) 03/03/23 17:45 BUN 11 mg/dl (6-23) 03/03/23 17:45 Creatinine 0.76 mg/dl (0.6-1.2) 03/03/23 17:45 Est Cr Clr Drug Dosing Not Reportable 03/03/23 17:45 Est GFR ( Amer) 80.6 ml/min 03/03/23 17:45 Est GFR (Non-Af Amer) 69.5 ml/min 03/03/23 17:45 BUN/Creatinine Ratio 14.5 (10-20) 03/03/23 17:45 Glucose 143 mg/dl (70-99(Fasting)) H 03/03/23 17:45 Calcium 9.8 mg/dl (8.6-10.3) 03/03/23 17:45 Magnesium 2.0 mg/dl (1.7-2.4) 03/03/23 17:45 Total Bilirubin 0.6 mg/dl (0.2-1.0) 03/03/23 17:45 AST 16 U/L (13-39) 03/03/23 20:09 ALT 6 U/L (7-52) L 03/03/23 17:45 Alkaline Phosphatase 77 U/L (34-104) 03/03/23 17:45 Troponin I High Sens 7.7 pg/ml (0-14) 03/03/23 17:45 Total Protein 8.2 gm/dl (6.0-8.3) 03/03/23 17:45 Albumin 4.2 gm/dl (3.4-5.0) 03/03/23 17:45 Globulin 4.0 gm/dl (2.5-4.0) 03/03/23 17:45 Albumin/Globulin Ratio 1.1 (0.9-2) 03/03/23 17:45 Lipase 18 U/L (11-82) 03/03/23 17:45 TSH 1.721 uIu/ml (0.300-4.500) 03/03/23 17:45 Urine Color Yellow 03/03/23 22: Urine Appearance Turbid (Clear) A 03/03/23 22: Urine pH 6.0 (4.5-7.5) 03/03/23 22:26 Ur Specific [place] 1.022 (1.000-1.030) 03/03/23 22:26 Urine Protein 1+ (Negative) H 03/03/23 22:26 Urine Glucose (UA) Negative (Negative) 03/03/23 22: Urine Ketones 1+ (Negative) H 03/03/23 22: Urine Blood 2+ (Negative) H 03/03/23 22: Urine Nitrite Negative (Negative) 03/03/23 22: Urine Bilirubin Negative (Negative) 03/03/23 22: Urine Urobilinogen Negative (Negative) 03/03/23 22: Ur Leukocyte Esterase 2+ (Negative) H 03/03/23 22:26 Urine WBC (Auto) >30 /hpf (0-5) H 03/03/23 22:26 Urine RBC (Auto) 10-30 /hpf (0-4) H 03/03/23 22:26 U Hyaline Cast (Auto) 1-5 /lpf (0-5) 03/03/23 22:26 U Epithel Cells (Auto) >30 /lpf (0-5) H 03/03/23 22:26 Urine Bacteria (Auto) 4+ (Negative) H 03/03/23 22:26 Adenovirus (PCR) Not Detected (NotDetected) 03/03/23 17:53 B. pertussis DNA (PCR) Not Detected (NotDetected) 03/03/23 17:53 B.parapertussis DNA PCR Not Detected (NotDetected) 03/03/23 17:53 C. pneumoniae DNA (PCR) Not Detected (NotDetected) 03/03/23 17:53 Coronavirus OC43 (PCR) Not Detected (NotDetected) 03/03/23 17:53 Coronavirus HKU1 (PCR) Not Detected (NotDetected) 03/03/23 17:53 Coronavirus 229E (PCR) Not Detected (NotDetected) 03/03/23 17:53 SARS-CoV-2 (PCR) Not Detected (NotDetected) 03/03/23 17:53 Coronavirus NL63 (PCR) Not Detected (NotDetected) 03/03/23 17:53 Human Metapneumovir PCR Not Detected (NotDetected) 03/03/23 17:53 Influenza Type A (PCR) Not Detected (NotDetected) 03/03/23 17:53 Influenza Type B (PCR) Not Detected (NotDetected) 03/03/23 17:53 M. pneumoniae (PCR) Not Detected (NotDetected) 03/03/23 17:53 Parainfluenza 1 (PCR) Not Detected (NotDetected) 03/03/23 17:53 Parainfluenza 2 (PCR) Not Detected (NotDetected) 03/03/23 17:53 Parainfluenza 3 (PCR) Not Detected (NotDetected) 03/03/23 17:53 Parainfluenza 4 (PCR) DETECTED (NotDetected) A* 03/03/23 17:53 RSV (PCR) Not Detected (NotDetected) 03/03/23 17:53 Entero/Rhino (PCR) Not Detected (NotDetected) 03/03/23 17:53 Impressions Chest X-Ray 03/03/23 17:36 XR chest 1V not portable HISTORY: Cough COMPARISON: Chest 12/05/2016. FINDINGS: No pneumothorax. No pleural effusions. Scoliosis of the lumbar spine again noted. The heart is normal in size. There is diffuse reticulonodular interstitial thickening most pronounced at the lung bases. This is similar to the prior study and is therefore likely chronic. No new focal lung consolidations to suggest a pneumonia. No evidence for pulmonary edema. There are calcifications within the aortic knob. IMPRESSION: 1. Diffuse reticulonodular interstitial thickening which is similar to the prior study. Therefore, this suggests chronic interstitial lung disease. 2. No new focal lung consolidations to suggest a pneumonia. ACT 112: Negative or not required by law. Electronically signed by: Troy Parra M.D. 03/03/2023 6:08 PM Diagnostic Findings EKG as per my interpretation : Rate 85, NSR, LAD, LAFB, no ischemia, PVCs
--- OUTSIDE RECORDS SUMMARY | 2023-03-04 01:12 | External Medical Summary | Summary of Care ---
Author Name Unknown Organization [facility] Address [address] [place] [address] Phone [phone] Care Team Providers Care Party Plan Sales Consultant Name Role Phone Taqueria Ronquillo MD Primary Care Provider + Reason for Visit * Reason Onset Date Comments Physical-Exam 1 year physical exam. Patient denied any new concerns. Patient's daughter is present and states she has had 1 fall in the past year but did not sustain injury. Medication Administration 12/25/2022 Flu an d/or Pneumo Inj Encounter Details Date Type Department Care Team Description 12/25/2022 Office Visit General Internal Medicine [facility] [address] [place] [address] Taqueria Ronquillo MD [address] [place] [address] Late onset 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)*; Type 2 diabetes mellitus with hemoglobin A1c goal of less than 7.5% (HCC); Type II diabetes mellitus with neurological manifestations (HCC); Vitamin D deficiency; Vitamin B12 deficiency; Acquired hypothyroidism; SVT (supraventricular tachycardia) (HCC); Need for prophylactic vaccination and inoculation against influenza; Encounter for long-term (current) use of medications; DNR (do not resuscitate) Allergies Active Allergy Reactions Severity Noted Date Comments Simvastatin Muscle pain Low 10/16/2004 documented as of this encounter (statuses as of 12/25/2022) Medications Medication Sig Dispensed Refills Start Date End Date Status Cholecalciferol (VITAMIN D) 2000 UNITS CapsuleIndications: Vitamin D deficiency Take 2,000 Units by mouth in the morning. 0 04/02/2016 Active aspirin enteric coated 81 MG TBEC Take by mouth 81 mg daily . 100 Tab 3 09/16/2016 Active SAFETY-MARIANA SYRINGE 23G X 1" 3 ML MISCIndications:B12 deficiency USE DAILY FOR ONE WEEK WITH B12 INJECTIONS THEN USE WEEKLY FOR ONE MONTH FOR B12 INJECTIONS THEN ONCE MONTHLY FOR B12 INJECTION 4 Each 1 12/05/2016 Active Additional Information Patient not taking.Reported on 12/25/2022 Syringe/Needle, Disp, (BD SYRINGE/NEEDLE) 25G X 5/8" 3 ML MISCIndications:B12 deficiency Use daily for one week with b12 injections then use weekly for one month for b12 injections then once monthly for b12 injection 4 Each 1 11/26/2017 Active Additional Information Patient not taking.Reported on 12/25/2022 Levothyroxine Sodium 75 MCG Oral Tablet (Levoxyl)Indication s:Hypothyroidism TAKE 1 TABLET BY MOUTH DAILY AT LEAST 1/2 HOUR PRIOR TO BREAKFAST OR OTHER MEDS 90 Tablet 3 03/08/2022 Active Cyanocobalamin 1000 MCG/ML Injection Solution (Cyanocobalamin)Ind ications:B12 deficiency INJECT 1,000 MCG UNDER THE SKIN EVERY 30 DAYS. 3 mL 2 04/29/2022 Active Metoprolol Tartrate 25 MG Oral Tablet (Lopressor)Indicati ons:SVT (supraventricular tachycardia) (HCC) TAKE ONE-HALF TABLET BY MOUTH TWICE DAILY 90 Tablet 1 09/12/2022 Active documented as of this encounter (statuses as of 12/25/2022) Active Problems Problem Noted Date Vitamin B12 deficiency 12/25/2022 DNR (do not resuscitate) 12/23/2021 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 11/26/2017 Late onset Alzheimer's disease without b ehavioral disturbance 12/17/2016 FH: breast cancer in first degree relati ve 11/19/2015 Type 2 diabetes mellitus with hemoglobin A1c goal of less than 7.5% 07/16/2015 Overview: ICD-10 update of inactive term HTN, goal below 140/90 09/12/2014 SVT (supraventricular tachycardia) 10/24 Venous insufficiency 12/10/2011 Dyslipidemia, goal LDL below 100 012 ADVANCE DIRECTIVE INFORMATION 07/16/2005 Overview: No, Advance Directive brochure given to patient at prior appointment. Senile osteoporosis Aortic valve insufficiency Acquired hypothyroidism Vitamin D deficiency documented as of this encounter (statuses as of 12/25/2022) Resolved Problems Problem Noted Date Resolved Date Anemia due to vitamin B12 deficiency 08/06/2016 11/26/2017 Memory loss 04/01/2016 11/26/2017 Peripheral sensory neuropathy 02/19/2015 Constipation, slow transit 09/27/201402/19 Personal history of other malignant neoplasm of skin 07/26/2014 12/25/2022 Overview: BCC (R clavicle, L restorationism) Basal cell carcinoma 03/15/2013 07/26/2014 Overview: Face and right shoulder area DM type 2 causing neurological disease 2 12/06/2018 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 Osteoporosis 12/27/2004 07/06/2007 Mixed dyslipidemia 06/22/2004 03/27/2009 Overview: Per Lipid Taxonomy. HTN, goal below 140/90 06/22/2004 2 Hypothyroidism 06/22/2004 07/06/2007 Other specified anemias 06/22/2004 07/06/19 08 Impaired fasting glucose 012 Aortic valve disorder 03/15/2013 Other specified glaucoma 008 Other cataract 08/04/2007 Slow transit constipation 2022 Hip fracture, left 09/07/2012 Acquired underactive thyroid documented as of this encounter (statuses as of 12/25/2022) Immunizations Name Administration Dates Next Due COVID-19 mRNA, LNP-s, No Pre serve, 2-Dose Series (Pfizer) 04/10/2021,06/17/2020,05/20/2020 Pneumococcal Conjugate Vacc, 13 Valent (Prevnar) 07/16/2015 Pneumococcal Polysaccharide PPV23 (Pneumovax) 08/09/2011 Season Influenza, Quad, PF, Adjuvanted, 65+ Yrs, IM (FLUAD) 12/21/2019 Seasonal Influenza, Quadriva lent Hd (Fluzone Hd) 12/25/2022,12/23/2021,04/10/2021 Seasonal Influenza, Quadriva lent, No Preserve, IM 12/17/2016,04/01/2016,02/19/2015 Seasonal Influenza, Split, I IV3, With Preserve, Inj 04/27/2014,03/15/2013,01/12/2012,01/11,02/04/2010,05/30/2009,05/23/2008 ,05/07/2007,01/14/2006 Seasonal Influenza, Trivalen t, Adjuvanted, 65+ yrs 12/09/2018 TD - Tetanus/Diptheria (ADULT) 08/12/2007 TDAP (age 10 and older)(Boostrix) 04/13/2016 Varicella Zoster Vaccine (Adult) 09/13/2012 documented as of this encounter Social History Tobacco Use Types Packs/Day Years Used Date Smoking Tobacco: Never Smokeless Tobacco: Never Tobacco Cessation:Counseling Given: Not Answered Alcohol Use Standard Drinks/Week Comments No 0 (1 standard drink = 0.6 oz pur e alcohol) Food Insecurity Answer Date Recorded Within the past 12 months, y ou worried that your food would run out before you got money to buy more. Never true 12/21/2019 Within the past 12 months, t he food you bought just didn't last and you didn't have money to get more. Never true 12/21/2019 Sex Assigned at Date Recorded Female 12/21/2019 10:37 AM EDT Job Start Date Occupation Industry Not on file Not on file Not on file documented as of this encounter Last Filed Vital Signs Vital Sign Reading Time Taken Comments Blood Pressure 132/68 12/25/2022 2:49 PM EDT Pulse 80 12/25/2022 2:49 PM EDT Temperature 36.2 C (97.2 F) 12/25/2022 2:49 PM ED T Respiratory Rate - - Oxygen Saturation 100% 12/25/2022 2:49 PM EDT Inhaled Oxygen Concentration - - Weight 56.7 kg (125 lb 1.6 oz) 12/25/2022 2:49 P M EDT Height 162.6 cm (5' 4") 12/25/2022 2:49 PM EDT Body Mass Index 21.47 12/25/2022 2:49 PM EDT documented in this encounter Patient Instructions * Patient Instructions* Venessa Farfan, [employer] - 12/25/2022 2:54 PM EDT Diabetes: Keeping Feet Healthy Inspect your feet every day for signs of a problem. Diabetes can damage nerves in your feet and cause neuropathy. This condition makes it hard for you to feel injuries or sore spots. Diabetes can also change blood flow, making it harder for small problems, like a blister, to heal properly. In fact, minor injuries can quickly become serious infections that send you to the hospital. Practice self-care to protect your feet and keep them healthy. Take Special Care Inspect your feet daily for problems such as redness, blisters, cracks, dry skin, or numbness. Use a mirror to see the bottoms of your feet. Or, ask for help. Manage your diabetes. Monitor and control your blood sugar. Take all your medications as prescribed. Avoid walking barefoot, even indoors. Wash your feet with warm water and mild soap. Dry well, especially between toes. Dont treat corns or calluses yourself. Talk to your doctor or concession cashier (a doctor who specializes in foot care) if you need assistance trimming your toenails. Use moisturizing cream or lotion if you have dry skin, but dont use it between toes. Dont use heating pads on your feet. If you have neuropathy, you could get a burn and not feel it. Stop smoking. Smoking restricts blood flow and can make it harder for wounds to heal. Have Regular Checkups Foot problems can develop quickly. So be sure to follow your healthcare teams schedule for regular checkups. During office visits, take off your shoes and socks as soon as you get in the exam room. Ask your healthcare provider to examine your feet for problems. This will make it easier to find and treat small skin irritations before they get worse. Regular checkups can also help keep track of the blood flow and feeling in your feet. If you have neuropathy, you may need to have checkups more often. Wear Proper Footwear Wearing proper footwear is very important. If areas of your feet have been damaged by too much pressure, your healthcare provider may recommend changing your footwear. In some cases, avoiding high heels or tight work boots may be all thats needed. Or, your healthcare provider may recommend special shoes or custom inserts. These help protect your feet and keep existing irritations from getting worse. If you need special footwear, ask your healthcare provider if you qualify for [employer] diabetic shoe program. Make Sure Shoes and Socks Fit Any pair of shoes--new or old--should feel comfortable as soon as you put them on. There shouldnt be any rubbing when you walk. Wear the right shoe for any activity. For instance, a running shoe is designed to keep your feet injury-free while jogging. Buy shoes at the end of the day, when your feet are larger. Make sure they provide support without feeling too loose. Make sure your socks fit, t oo. Wear soft, seamless, well-padded socks for activity. Cotton or microfiber socks are best to help to absorb sweat. To protect your feet, avoid shoes that are open-toed or open-heeled. If you have questions about what kinds of shoes and socks are best, talk to your healthcare team. Get Regular Exercise Regular exercise improves blood flow in your feet. It also increases foot strength and flexibility.Gentle exercises, like walking or riding a stationary bicycle, are best. You can also do special foot exercises. Just be sure to talk with your healthcare provider before starting any exercise program. Also mention if any exercise causes pain, redness, or other signs of foot problems. Note: If you have any kind of break in the skin of your foot or ankle, keep the area clean. Then call your doctor--especially if the area doesnt appear to be healing. [phone] [employer], [address] [place] [address], [place] [address]. All rights reserved. This information is not intended as a substitute for professional medical care. Always follow your healthcare professional's instructions. documented in this encounter Progress Notes * Taqueria Ronquillo MD - 12/25/2022 3:15 PM EDT Chief Complaint Patient presents with Physical-Exam 1 year physical exam. Patient denied any new concerns. Patient's daughter is present and states shehas had 1 fall in the past year but did not sustain injury. Medication Administration Flu and/or Pneumo Inj SUBJECTIVE: Antonette Matson is a 87 year old female with PMH as below who presents for follow up of Alzheimer's, htn, dm, vit b12/d def. She is with her daughter. No cp, sob, dan. Mood is good. Getting vit b12. Still lives at home, but has meals on wheels and has aids coming in. 1 fall in past 6 months but no injury. No wondering, no er visits. Feels good overall. Patient Active Problem List Diagnosis Code ADVANCE DIRECTIVE INFORMATION Senile osteoporosis M81.0 Aortic valve insufficiency I35.1 Acquired hypothyroidism E03.9 Vitamin D deficiency E55.9 Dyslipidemia, goal LDL below 100 E78.5 Venous insufficiency I87.2 SVT (supraventricular tachycardia) (HCC) I47.1 HTN, goal below 140/90 I10 Type 2 diabetes mellitus with hemoglobin A1c goal of less than 7.5% (HCC) E11.9 FH: breast cancer in first degree relative Z80.3 Late onset 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) G30.1, F02.80 Type II diabetes mellitus with neurological manifestations (HCC) E11.49 DNR (do not resuscitate) Z66 Vitamin B12 deficiency E53.8 Current Outpatient Medications Medication Sig Dispense Refill Cholecalciferol (VITAMIN D) 2000 UNITS Capsule Take 2,000 Units by mouth in the morning. Levothyroxine Sodium 75 MCG Oral Tablet (Levoxyl) TAKE 1 TABLET BY MOUTH DAILY AT LEAST 1/2 HOUR PRIOR TO BREAKFAST OR OTHER MEDS 90 Tablet 3 Cyanocobalamin 1000 MCG/ML Injection Solution (Cyanocobalamin) INJECT 1,000 MCG UNDER THE SKIN EVERY 30 DAYS. 3 mL 2 Metoprolol Tartrate 25 MG Oral Tablet (Lopressor) TAKE ONE-HALF TABLET BY MOUTH TWICE DAILY 90 Tablet 1 aspirin enteric coated 81 MG TBEC Take by mouth 81 mg daily . (Patient not taking: Reported on 12/23/2021) 100 Tab 3 SAFETY-MARIANA SYRINGE 23G X 1" 3 ML MISC USE DAILY FOR ONE WEEK WITH B12 INJECTIONS THEN USE WEEKLY FOR ONE MONTH FOR B12 INJECTIONS THEN ONCE MONTHLY FOR B12 INJECTION (Patient not taking: Reported on 12/23/2021) 4 Each 1 Syringe/Needle, Disp, (BD SYRINGE/NEEDLE) 25G X 5/8" 3 ML MISC Use daily for one week with b12 injections then use weekly for one month for b12 injections then once monthly for b12 injection (Patientnot taking: Reported on 12/23/2021) 4 Each 1 No current facility-administered medications for this visit. Review of patient's allergies indicates: Allergen Reactions Zocor [Simvastatin] Muscle pain Health Maintenance Due Topic Date Due Zoster Vaccines (2 of 3) 11/08/2012 *BISPHONATE OR OTHER ACCEPTABLE MEDICATION NEEDED FOR OSTEOPOROSIS (REFER TO SMARTSET #1146) Never done Depression Screening 12/20/2020 COVID-19 Vaccine (4 - Pfizer series) 06/05/2021 DIABETES-EYE EXAM 07/23/2021 HbA1c 06/22/2022 Albumin/Creatinine Ratio 12/23/2022 TSH 12/23/2022 ROS: CONSTITUTIONAL: No change in weight, No weakness, and No fevers, sweats, or chills EYE: No recent significant change in vision and No eye pain, redness, discharge EARS: No ear pain, No drainage, No tinnitus or vertigo, and No recent change in hearing NOSE: No history of frequent colds or sinusitis, No nasal stuffiness, No history of Hay Fever, and No significant epistaxis PULMONARY: No cough, sputum, or hemoptysis, No wheezing, No rales, No shortness of breath, and No recent change in breathing CARDIOVASCULAR: No chest pain, No shortness of breath, No dyspnea on exertion, No orthopnea, No paroxysmal nocturnal dyspnea, No edema, No palpitations, and No syncope GASTROINTESTINAL: No abdominal pain, No change in bowel habits, No significant heartburn, No significant change in appetite, No nausea, vomiting, diarrhea, or constipation, No hematemesis, No blood in stools or black tarry stools, No abdominal bloating or early satiety, and No dysphagia ALL OTHER SYSTEMS NEGATIVE I reviewed social, PMH, PSH, and family history and updated where needed. 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 Tobacco Use Smoking status: Never Smokeless tobacco: Never Substance and Sexual Activity Alcohol use: No Drug use: No Sexual activity: Yes Partners: Male Other Topics Concern Service No Blood Transfusions No Caffeine Concern No Occupational Exposure No Hobby Hazards No Sleep Concern No Stress Concern No Weight Concern No Special Diet Yes Back Care No Exercise Yes Bike Helmet Not Asked Seat Belt Yes Self-Exams Not Asked Social History Narrative Not on file Social Determinants of Health Financial Resource Strain: Not on file Food Insecurity: Not on file Transportation Needs: Not on file Physical Activity: Not on file Stress: Not on file Social Connections: Not on file Intimate Partner Violence: Not on file Housing Stability: Not on file Past Medical History: Diagnosis Date Acquired underactive thyroid Aortic valve insufficiency mod-severe - mild as of 06/18 Basal cell carcinoma 03/15/2013 Face and right shoulder area Constipation, slow transit 09/27/2014 DM type 2 causing neurological disease ([facility]) 12/10/2011 DM type 2, goal A1c below 7 12/09/2011 Dyslipidemia, goal LDL below 100 12/09/2011 Hip fracture, left ([facility]) 08/02/2011 subcapital fracture HTN, goal below 140/90 1993 Hypothyroidism 1994 Impaired fasting glucose 01/2006 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 ([facility]) 12/10/2011 Other cataract bilateral Other specified glaucoma Peripheral sensory neuropathy 02/19/2015 Personal history of other malignant neoplasm of skin 07/26/2014 BCC (R clavicle, L restorationism) Pyelonephritis 06/24/2013 [place], E coli in urine and blood cultures Senile osteoporosis 12/2004 Slow transit constipation SVT (supraventricular tachycardia) ([facility]) 10/24/2013 Venous insufficiency 12/10/2011 Vitamin D deficiency Past Surgical History: Procedure Laterality Date COLORECTAL CANCER SCREEN; COLON 09/24/07 normal - Dr. Melton INCISION OF NECK OF FEMUR 08/03/11 [facility]- left hip REMOVAL OF APPENDIX 1972 Family History Problem Relation Age of Onset Heart Disorder Mother age 64 of coronary thrombus Other (mining accident) Father age 36 Cancer Sister breast cancer age 73 Heart Disorder Sister CABG age 70 Diabetes Sister Cancer Sister age 64 cancer uterus Diabetes Brother Heart Disorder Brother CABG at age 70 OBJECTIVE: PHYSICAL EXAM: BP 132/68 | Pulse 80 | Temp 36.2 C (97.2 F) | Ht 1.626 m (5' 4") | Wt 56.7 kg (125 lb 1.6 oz) |SpO2 100% | BMI 21.47 kg/m | BSA 1.6 m General: alert, healthy, and no distress Head: Normocephalic, No masses, lesions, tenderness or abnormalities Eye Exam: conjunctiva are pink and non-injected, sclera clear Ears: External ears normal, Canals clear, TM's Normal Heart: regular rate & rhythm, Ii/ HS murmur, no gallops, PMI non-displaced, S- 1 normal, and S-2 normal Lungs: normal respiratory rate and rhythm, lungs clear to auscultation Extremities: + bilateral edema, no clubbing, no cyanosis Psych: normal affect, no flight of ideas or tangential thought, good eye contact, no pressured speech ASSESSMENT: G30.1,F02.80 Late onset 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) (primary encounterdiagnosis) E11.9 Type 2 diabetes mellitus with hemoglobin A1c goal of less than 7.5% (HCC) E11.49 Type II diabetes mellitus with neurological manifestations (HCC) E55.9 Vitamin D deficiency E53.8 Vitamin B12 deficiency E03.9 Acquired hypothyroidism I47.1 SVT (supraventricular tachycardia) (HCC) Z23 Need for prophylactic vaccination and inoculation against influenza Z79.899 Encounter for long-term (current) use of medications Z66 DNR (do not resuscitate) PLAN: Late onset 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) (Primary) Seems stable Has aids at home, eating ok Follow Type 2 diabetes mellitus with hemoglobin A1c goal of less than 7.5% (HCC) Check labs Type II diabetes mellitus with neurological manifestations (HCC) - DIABETES FOOT EXAM - COMPREHENSIVE METABOLIC PANEL; Future; Expected date: 12/25/2022 - HEMOGLOBIN A1C; Future; Expected date: 12/25/2022 - LDL CHOLESTEROL (DIRECT MEASURE); Future; Expected date: 12/25/2022 - ALBUMIN / CREATININE RATIO, URINE; Future; Expected date: 12/25/2022 Vitamin D deficiency - 25-HYDROXY VITAMIN D; Future; Expected date: 12/25/2022 Recheck Cont supplement Vitamin B12 deficiency Cont injections Await labs Acquired hypothyroidism - TSH WITH FREE T4 IF INDICATED; Future; Expected date: 12/25/2022 Cont med SVT (supraventricular tachycardia) (HCC) Cont metoprolol Need for prophylactic vaccination and inoculation against influenza - INFLUENZA VACC, QUAD, HIGH DOSE (FLUZONE HD) Encounter for long-term (current) use of medications - VITAMIN B12; Future; Expected date: 12/25/2022 DNR (do not resuscitate) POLST on file Follow Up: Return in about 6 months (around 06/25/2023), or if symptoms worsen or fail to improve. Taqueria Ronquillo MD * Venessa Farfan CMA - 12/25/2022 2:54 PM EDT DM Foot Exam completed today. Provider aware. Venessa Farfan CMA Socks and Shoes Removed for Annual Diabetic Foot Screening RIGHT FOOT: No Reddened, Cracking, Or Open Areas Noted. RIGHT Dorsalis Pedis Pulse: Palpable RIGHT Posterior Tibial Pulse: Palpable RIGHT Monofilament:Patient reports feeling monofilament pressure on plantar surface of foot LEFT FOOT: No Reddened, Cracking or Open Areas Noted. LEFT Dorsalis Pedis Pulse: Palpable LEFT Posterior Tibial Pulse: Palpable LEFT Monofilament:Patient reports feeling monofilament pressure on plantar surface of foot Do you need diabetic shoes: No PRE - ADMINISTRATION DOCUMENTATION Are you experiencing any cold symptoms or fever? No Have you had Guillain-B[place]le[place] Syndrome (an illness that causes paralysis) within the last 6 weeks? No Have you had the flu shot in the past? YES Have you ever had a reaction to the flu shot? No Venessa Farfan CMA, 12/25/2022 2:55 PM Immunization Administration Documentation Time Out Procedure Performed: Yes Patient Identified (Ask Name/Date of ): Yes Does the patient have a fever greater than 101 degrees today? No Patient allergic to latex? No VFC Stock: Yes, Does this patient qualify for immunization through the [facility] program because he/she (check only one): No-this child does not qualify for [facility] program; refer patient to a [facility] Immunization(s) verified: Yes, Immunization Name: Flu, VIS Sheet(s) given: Yes Verified Side and Site: Yes Verified Shot(s) with Parent(s)/Patient: Yes documented in this encounter Nursing Notes * Venessa Farfan CMA - 12/25/2022 2:48 PM EDT Chief Complaint Patient presents with Physical-Exam 1 year physical exam. Patient denied any new concerns. Patient's daughter is present and states shehas had 1 fall in the past year but did not sustain injury. documented in this encounter Plan of Treatment Upcoming Encounters Date Type Specialty Care Team Description 12/25/2022 Laboratory Laboratory [place], [facility] [place] [address] [place] [id number] Type II diabetes mellitus with neurological manifestations (HCC); Acquired hypothyroidism; Encounter for long-term (current) use of medications; Vitamin D deficiency 07/10/2023 Office Visit Internal Medicine Taqueria Ronquillo MD [address] [facility] [place] [id number] Pending Results Name Type Priority Associated Diagnoses Date /Time COMPREHENSIVE METABOLIC PANEL Lab Routine Type II diabetes mellitus with neurological manifestations (HCC) 12/25/2022 3:24 PM EDT HEMOGLOBIN A1C Lab Routine Type II diabetes mellitus with neurological manifestations (HCC) 12/25/2022 3:24 PM EDT LDL CHOLESTEROL (DIRECT MEASURE) Lab Routine Type II diabetes mellitus with neurological manifestations (HCC) 12/25/2022 3:24 PM EDT ALBUMIN / CREATININE RATIO, URINE Lab Routine Type II diabetes mellitus with neurological manifestations (HCC) 12/25/2022 3:24 PM EDT TSH WITH FREE T4 IF INDICATED Lab Routine Acquired hypothyroidism 12/25/2022 3:24 PM EDT VITAMIN B12 Lab Routine Encounter for long-term (current) use of medications 12/25/2022 3:24 PM EDT 25-HYDROXY VITAMIN D Lab Routine Vitamin D deficiency 12/25/2022 3:24 PM EDT Scheduled Orders Name Type Priority Associated Diagnoses Orde r Schedule COMPREHENSIVE METABOLIC PANEL Lab Routine Type II diabetes mellitus with neurological manifestations (HCC) Expected: 12/25/2022 (Approximate), Expires: 12/25/2023 HEMOGLOBIN A1C Lab Routine Type II diabetes mellitus with neurological manifestations (HCC) Expected: 12/25/2022 (Approximate), Expires: 12/25/2023 LDL CHOLESTEROL (DIRECT MEASURE) Lab Routine Type II diabetes mellitus with neurological manifestations (HCC) Expected: 12/25/2022 (Approximate), Expires: 12/25/2023 ALBUMIN / CREATININE RATIO, URINE Lab Routine Type II diabetes mellitus with neurological manifestations (HCC) Expected: 12/25/2022 (Approximate), Expires: 12/26/2023 TSH WITH FREE T4 IF INDICATED Lab Routine Acquired hypothyroidism Expected: 12/25/2022 (Approximate), Expires: 12/26/2023 VITAMIN B12 Lab Routine Encounter for long-term (current) use of medications Expected: 12/25/2022 (Approximate), Expires: 12/25/2023 25-HYDROXY VITAMIN D Lab Routine Vitamin D deficiency Expected: 12/25/2022 (Approximate), Expires: 12/25/2023 Health Maintenance Due Date Last Done Comments Zoster Vaccines (2 of 3) 11/08/2012 09/13/2012 *BISPHONATE OR OTHER ACCEPTABLE MEDICATION NEEDED FOR OSTEOPOROSIS (REFER TO SMARTSET #1146) 04/04/2016 Depression Screening 12/20/2020 12/21/2019 COVID-19 Vaccine (4 - Pfizer series) 06/05/2021 04/10/2021, 06/17/2020, 05/20/2020 DIABETES-EYE EXAM 07/23/2021 07/23/2020, , 12/09/2018, Additional history exists HbA1c 06/22/2022 12/23/2021, 03/14, 12/21/2019, Additional history exists Albumin/Creatinine Ratio 12/23/2022 022, 08/06/2016, 04/27/2014, Additional history exists TSH 12/23/2022 12/23/2021, 08/11, 04/10/2021, Additional history exists Diabetic Foot Exam 12/26/2023 12/25/2022, 1 , 12/21/2019, Additional history exists DTaP,Tdap,and Td Vaccines (2 - Td or Tdap) 04/13/2026 04/13/2016, 08/12/2007 DXA Scan Discontinued 07/18/2014, 05/15, 04/10/2010, Additional history exists Pneumococcal Vaccine: 65+ Years Completed 07/16/2015, 08/09/2011, 01/22/2005 VITAMIN D LEVEL ONCE IN A LIFETIME-USE SMARTSET# [id number] Completed 11/26/2017, 04/01/2016, 02/28/2014, Additional history exists Influenza Vaccine (FLU shot) Completed 12/25/2022, 12/23/2021, 04/10/2021, Additional history exists GARDASIL-HPV IMMUNIZATION SERIES Aged Out No longer eligible based on patient's age to complete this topic Hepatitis B Aged Out No longer eligi ble based on patient's age to complete this topic MENINGOCOCCAL (MENACTRA/MENVEO) Aged Out No longer eligible based on patient's age to complete this topic documented as of this encounter Medical Devices Not on filedocumented as of this encounter Visit Diagnoses Diagnosis Late onset 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)- Primary Type 2 diabetes mellitus with hemoglobin A1c goal of less than 7.5% (HCC) Type II diabetes mellitus with neurological manifestations (HCC) Type II or unspecified type diabetes mellitus with neurological manifestations, not stated as uncontrolled Vitamin D deficiency Unspecified vitamin D deficiency Vitamin B12 deficiency Other B-complex deficiencies Acquired hypothyroidism Unspecified hypothyroidism SVT (supraventricular tachycardia) (HCC) Other specified cardiac dysrhythmias Need for prophylactic vaccination and inoculation against influenza Encounter for long-term (current) use of medications Encounter for long-term (current) use of other medications DNR (do not resuscitate) Do not resuscitate status Type II diabetes mellitus with neurological manifestations (HCC) Type II or unspecified type diabetes mellitus with neurological manifestations, not stated as uncontrolled Acquired hypothyroidism Unspecified hypothyroidism Encounter for long-term (current) use of medications Encounter for long-term (current) use of other medications Vitamin D deficiency Unspecified vitamin D deficiency documented in this encounter Advance Directives Documents on File Type Date Recorded Patient Forensics Analyst Expl anation POLST 12/23/2021 [place] OR [facility] FOR LIFE-SUSTAINING TREATMENT Care Teams Party Plan Sales Consultant Relationship Specialty Start Date End Date Taqueria Ronquillo MD [address] [place] [address] PCP - General Internal Medicine 04/01/16 documented as of this encounter
--- OUTSIDE RECORDS SUMMARY | 2023-03-04 01:12 | External Medical Summary ---
Author Name Unknown Address Unknown Organization K01:LABORATORY [facility] [place] - [address] [place] [id number] Laboratory Report Ordering Provider Test Date Status RENALDO MCCONNELL 12/25/2022 15:24:09 Final Deficient: <20 ng/mL
Ins ufficient: 20-29 ng/mL
Recommended/Optimum:30-50 ng/mL

Vitamin D intoxication is rare. If suspicious of Vitamin D toxicity, evaluation of serum Calcium and PTH is recommended. Observation Date Value Abnormality Reference (Units ) Status 25-OH Vitamin D total 12/25/2022 15:24:09 29 >19 (ng/mL) Final Performing Location LAB[facility]ATORY [facility] [place] - [address] [place] [id number]
--- OUTSIDE RECORDS SUMMARY | 2023-03-04 01:12 | External Medical Summary | Summary of Care ---
Author Name Unknown Organization [facility] Address [address] [place] [address] Phone [phone] Care Team Providers Care Shear Grinder Operator Name Role Phone Taqueria Macario MD Primary Care Provider + Reason for Visit * Reason Comments eRx-Medication Refill Encounter Details Date Type Department Care Team Description 01/29/2023 Refill General Internal Medicine [facility] [address] [facility] [place] [address] Taqueria Macario MD 200 [facility] [place] [address] B12 deficiency Allergies Active Allergy Reactions Severity Noted Date Comments Simvastatin Muscle pain Low 10/16/2004 documented as of this encounter (statuses as of 01/29/2023) Medications Medication Sig Dispensed Refills Start Date End Date Status Cholecalciferol (VITAMIN D) 2000 UNITS CapsuleIndicatio ns:Vitamin D deficiency Take 2,000 Units by mouth in the morning. 0 04/02/2016 Active aspirin enteric coated 81 MG TBEC Take by mouth 81 mg daily . 100 Tab 3 09/16/2016 Active SAFETY-MARIANA SYRINGE 23G X 1" 3 ML MISCIndications: B12 deficiency USE DAILY FOR ONE WEEK WITH B12 INJECTIONS THEN USE WEEKLY FOR ONE MONTH FOR B12 INJECTIONS THEN ONCE MONTHLY FOR B12 INJECTION 4 Each 1 12/05/2016 Active Additional Information Patient not taking.Reported on 12/25/2022 Syringe/Needle, Disp, (BD SYRINGE/NEEDLE) 25G X 5/8" 3 ML MISCIndications: B12 deficiency Use daily for one week with b12 injections then use weekly for one month for b12 injections then once monthly for b12 injection 4 Each 1 11/26/2017 Active Additional Information Patient not taking.Reported on 12/25/2022 Levothyroxine Sodium 75 MCG Oral Tablet (Levoxyl)Indicat ions:Hypothyroid ism TAKE 1 TABLET BY MOUTH DAILY AT LEAST 1/2 HOUR PRIOR TO BREAKFAST OR OTHER MEDS 90 Tablet 3 03/08/2022 Active Metoprolol Tartrate 25 MG Oral Tablet (Lopressor)Indic ations:SVT (supraventricula r tachycardia) TAKE ONE-HALF TABLET BY MOUTH TWICE DAILY 90 Tablet 1 09/12/2022 Active Cyanocobalamin 1000 MCG/ML Injection Solution (Cyanocobalamin) Indications:B12 deficiency INJECT 1,000 MCG UNDER THE SKIN EVERY 30 DAYS. 3 mL 2 01/29/2023 Active Cyanocobalamin 1000 MCG/ML Injection Solution (Cyanocobalamin) Indications:B12 deficiency INJECT 1,000 MCG UNDER THE SKIN EVERY 30 DAYS. 3 mL 2 04/29/2022 3 Discontinued documented as of this encounter (statuses as of 01/29/2023) Active Problems Problem Noted Date Vitamin B12 [...] as of this encounter (statuses as of 01/29/2023) Resolved Problems Problem Noted Date Resolved Date Anemia due to vitamin B12 deficiency 08/06/2016 11/26/2017 Memory loss 04/01/2016 11/26/2017 Peripheral sensory neuropathy 02/19/2015 Constipation, slow transit 09/27/201402/19 Personal history of other malignant neoplasm of skin 07/26/2014 12/25/2022 Overview: BCC (R clavicle, L evangelical) Basal cell carcinoma 03/15/2013 07/26/2014 Overview: Face [...] as of this encounter (statuses as of 01/29/2023) Immunizations Name Administration Dates Next Due COVID-19 mRNA, LNP-s, No Pre serve, 2-Dose Series ([employer]) 04/10/2021,06/17/2020,05/20/2020 Pneumococcal Conjugate Vacc, 13 Valent (Prevnar) [...] Date Smoking Tobacco: Never Smokeless Tobacco: Never Alcohol Use Standard Drinks/Week Comments No 0 [...] on file documented as of this encounter Miscellaneous Notes * Telephone Encounter - Taqueria Macario MD - 01/29/2023 12:47 PM EDTSigned Prescriptions: Disp Refills Cyanocobalamin 1000 MCG/ML Injection Solut*3 mL 2 Sig: INJECT 1,000 MCG UNDER THE SKIN EVERY 30 DAYS. Authorizing Provider: TAQUERIA MACARIO * Telephone Encounter - Leana Schmitt [facility] - 01/29/2023 12:46 PM EDTPending Prescriptions: Disp Refills Cyanocobalamin 1000 MCG/ML Injection Solut*3 mL 2 Sig: INJECT 1,000 MCG UNDER THE SKIN EVERY 30 DAYS. * Telephone Encounter - Leana Schmitt [facility] - 01/29/2023 12:46 PM EDT Did you pend patient's preferred pharmacy and medication before forwarding?yes Pharmacy: [id number] [address] [place] [address] Pending Prescriptions: Disp Refills Cyanocobalamin 1000 MCG/ML Injection Solu*3 mL 2 Sig: INJECT 1,000 MCG UNDER THE SKIN EVERY 30 DAYS. Last Visit: 12/25/2022 (in office), Visit date not found (telemedicine) Next Visit: 07/10/2023 If no future appointments scheduled, and last appointment is greater than a year ago, please schedule patient for a follow-up appointment Last date the medication was ordered: 04/29/22 Is this request for a controlled substance?No Urine Drug Screen:No results found for this or any previous visit. Patient Phone Numbers Labs: Lab Results Component Value Date/Time CREAT 0.7 12/25/2022 03:24 PM CREAT 0.8 12/21/2019 11:20 AM POTASSIUM 4.6 12/25/2022 03:24 PM POTASSIUM 4.3 12/21/2019 11:20 AM TSH 2.52 12/25/2022 03:24 PM TSH 1.93 12/21/2019 11:20 AM LDLCALC 156 (H) 12/09/2018 01:29 PM LDLDIRECT 134 (H) 12/25/2022 03:24 PM LDLDIRECT NOT APPLICABLE 12/09/2018 01:29 PM ALT 7 (L) 12/25/2022 03:24 PM ALT 8 (L) 12/21/2019 11:20 AM HGBA1C 6.0 (H) 12/25/2022 03:24 PM HGBA1C 5.8 (H) 12/21/2019 11:20 AM documented in this encounter Plan of Treatment Upcoming Encounters Date Type Specialty Care Team Description 07/10/2023 Office Visit Internal Medicine Taqueria Macario MD [address] [place] [id number] Health Maintenance Due Date Last Done Comments Zoster Vaccines (2 of 3) 11/08/2012 09/13/2012 *BISPHONATE OR OTHER ACCEPTABLE MEDICATION NEEDED FOR OSTEOPOROSIS (REFER TO SMARTSET #1146) 04/04/2016 DIABETES-EYE EXAM 07/23/2021 07/23/2020, , 12/09/2018, Additional history exists COVID-19 Vaccine ( season) 2022 04/10/2021, 06/17/2020, 05/20/2020 HbA1c 06/25/2023 12/25/2022, 12/12, 04/10/2021, Additional history exists Albumin/Creatinine Ratio 12/26/2023 023, 12/23/2021, 08/06/2016, Additional history exists Depression Screening 12/26/2023 12/25/2022 Diabetic Foot Exam 12/26/2023 12/25/2022, 1 , 12/21/2019, Additional history exists TSH 12/26/2023 12/25/2022, 12/12, 08/20/2021, Additional history exists DTaP,Tdap,and Td Vaccines (2 - Td or Tdap) 04/13/2026 04/13/2016, 08/12/2007 DXA Scan Discontinued 07/18/2014, 05/15, 04/10/2010, Additional history exists Pneumococcal Vaccine: 65+ Years Completed 07/16/2015, 08/09/2011, 01/22/2005 Influenza Vaccine (FLU shot) Completed 12/25/2022, 12/23/2021, 04/10/2021, Additional history exists VITAMIN D LEVEL ONCE IN A LIFETIME-USE SMARTSET# [id number] Completed 12/25/2022, 11/26/2017, 04/01/2016, Additional history exists GARDASIL-HPV IMMUNIZATION SERIES Aged [...] as of this encounter Visit Diagnoses Diagnosis B12 deficiency Other B-complex deficiencies documented in this encounter Advance Directives Documents on File Type Date Recorded Patient Bioinformatics Computer Scientist Expl anation POLST 12/23/2021 [place] OR [facility] FOR LIFE-SUSTAINING TREATMENT Care Teams Shear Grinder Operator Relationship Specialty Start Date End Date Taqueria Macario MD [address] [facility] [place] [address] PCP - General Internal Medicine 04/01/16 documented as of this encounter
--- OUTSIDE RECORDS SUMMARY | 2023-03-04 01:12 | External Medical Summary ---
Author Name Unknown Address Unknown Organization K01:[facility] [place] [address] [place] [id number] Laboratory Report Ordering Provider Test Date Status RENALDO MCCONNELL 12/25/2022 15:24:09 Final Observation Date Value Abnormality Reference (Units ) Status TSH 12/25/2022 15:24:09 2.52 0.27-4.20 (uIU/mL) Final Performing Location LABORATORY [facility] - [address] [place] [id number]
--- OUTSIDE RECORDS SUMMARY | 2023-03-04 01:12 | External Medical Summary | Summary of Care ---
Author Name Unknown Organization [facility] Address [address] [place] [address] Phone [phone] Care Team Providers Care Azure Developer Name Role Phone Taqueria Macario MD Primary Care Provider + Reason for Visit * Reason Comments eRx-Medication Refill Encounter Details Date Type Department Care Team (Late st Contact Info) Description 02/25/2023 Refill General Internal Medicine [facility] 200 [place] [address] Taqueria Macario MD [address] [place] [address] SVT (supraventricular tachycardia) Allergies Active Allergy Reactions Criticality Noted Date Comments Simvastatin Muscle pain Low 10/16/2004 documented as of this encounter (statuses as of 02/25/2023) Medications Medication Sig Dispensed Refills Start Date [...] Additional Information Patient not taking.Reported on 12/25/2022 Cyanocobalamin 1000 MCG/ML Injection Solution (Cyanocobalamin) Indications:B12 deficiency INJECT 1,000 MCG UNDER THE SKIN EVERY 30 DAYS. 3 mL 2 01/29/2023 Active Levothyroxine Sodium 75 MCG Oral Tablet (Levoxyl)Indicat ions:Hypothyroid ism TAKE 1 TABLET BY MOUTH DAILY AT LEAST 1/2 HOUR PRIOR TO BREAKFAST OR OTHER MEDS 90 Tablet 3 02/07/2023 Active Metoprolol Tartrate 25 MG Oral Tablet (Lopressor)Indic ations:SVT (supraventricula r tachycardia) TAKE ONE-HALF TABLET BY MOUTH TWICE DAILY 90 Tablet 1 02/25/2023 Active Metoprolol Tartrate 25 MG Oral Tablet (Lopressor)Indic ations:SVT (supraventricula r tachycardia) TAKE ONE-HALF TABLET BY MOUTH TWICE DAILY 90 Tablet 1 09/12/2022 3 Discontinued documented as of this encounter (statuses as of 02/25/2023) Active Problems Problem Noted Date Diagnosed Date Vitamin B12 deficiency 12/25/2022 DNR (do not resuscitate) 12/23/2021 Type II diabetes mellitus with neurological yue festations 11/26/2017 Late onset Alzheimer's disea se without behavioral disturbance 12/17/2016 FH: breast cancer in first degree relative 11/18 Type 2 diabetes mellitus wit h hemoglobin A1c goal of less than 7.5% 07/16/2015 Overview: ICD-10 update of inactive term HTN, goal below 140/90 09/12/2014 SVT (supraventricular tachycardia) 10/24/2013 Venous insufficiency 12/10/2011 Dyslipidemia, goal LDL below 100 12/09/2011 ADVANCE DIRECTIVE INFORMATION 07/16/2005 Overview: No, Advance Directive brochure given to patient at prior appointment. Senile osteoporosis Aortic valve insufficiency Acquired hypothyroidism Vitamin D deficiency documented as of this encounter (statuses as of 02/25/2023) Resolved Problems Problem Noted Date Diagnosed Date Resolved Date Anemia due to vitamin B12 deficiency 08/06/2016 11/26/2017 Memory loss 04/01/2016 11/26/2017 Peripheral sensory neuropathy 02/19/2015 11/26/2017 Constipation, slow transit 09/27/2014 1 04/21/2014 Personal history of other ma lignant neoplasm of skin 07/26/2014 12/25/2022 Overview: BCC (R clavicle, L catholic) Basal cell carcinoma 03/15/2013 015 Overview: Face and right shoulder area DM type 2 causing neurological disease 12/10/2011 12/06/2018 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 Osteoporosis 12/27/2004 07/06/2007 Mixed dyslipidemia 06/22/2004 9 Overview: Per Lipid Taxonomy. HTN, goal below 140/90 06/22/200412/08 Hypothyroidism 06/22/2004 07/06/2007 Other specified anemias 06/22/200406/12 Impaired fasting glucose Aortic valve disorder 2012 Other specified glaucoma Other cataract 08/04/2007 Slow transit constipation Hip fracture, left 3 Acquired underactive thyroid 11/26/2017 documented as of this encounter (statuses as of 02/25/2023) Immunizations Name Administration Dates Next Due COVID-19 [...] drink = 0.6 oz pur e alcohol) PHQ-2 Answer Date Recorded PHQ Adult Total Score 0 12/25/2022 Hunger Vital Sign Answer Date Recorded Worried About Running Out of Food in the Last Ye ar Never true 12/21/2019 Ran Out of Food in the Last Year Never true 12/21/2019 Sex and Gender Information Value Date Recorded Sex Assigned at Female 12/21/2019 10:37 AM EDT Gender Identity Female 12/21/2019 10:37 AM EDT Sexual Orientation Straight 12/21/2019 10 :37 AM EDT Job Start Date Occupation Industry Not on file Not on file Not on file documented as of this encounter Miscellaneous Notes * Telephone Encounter - Chyna Shahid [facility] - 02/25/2023 6:49 PM EST Signed Prescriptions: Disp Refills Metoprolol Tartrate 25 MG Oral Tablet (Lop*90 Tab*1 Sig: TAKE ONE-HALF TABLET BY MOUTH TWICE DAILYAuthorizing Provider: TAQUERIA MACARIO User: CHYNA SHAHID documented in this encounter Plan of Treatment Upcoming Encounters Date Type Department Care Team (Late st Contact Info) Description 07/10/2023 10:20 AM EDT Office Visit General Internal Medicine [facility] [place] [address] [place] [address] Taqueria Macario MD [address] [place] [address] Health Maintenance Due Date Last Done Comments Hepatitis B (1 of 3 - Risk 3-dose series) 1993 Zoster Vaccines (2 of 3) 11/08/2012 09/13/2012 *BISPHONATE OR OTHER ACCEPTABLE MEDICATION NEEDED FOR OSTEOPOROSIS (REFER TO SMARTSET #1146) 04/04/2016 Diabetic Eye Exam 07/23/2021 07/23/2020, , 12/09/2018, Additional history exists [...] D LEVEL ONCE IN A LIFETIME-USE SMARTSET# [id number] Completed 12/25/2022, 11/26/2017, 04/01/2016, Additional history exists GARDASIL-HPV IMMUNIZATION SERIES Aged Out No longer eligible based on patient's age to complete this topic MENINGOCOCCAL (MENACTRA/MENVEO) Aged Out No longer eligible based on patient's age to complete this topic documented as of this encounter Medical Devices Not on filedocumented as of this encounter Visit Diagnoses Diagnosis SVT (supraventricular tachycardia) Other specified cardiac dysrhythmias documented in this encounter Advance Directives Documents on File Type Date Recorded Patient Specimen Transporter Expl anation POLST 12/23/2021 [place] OR [facility] FOR LIFE-SUSTAINING TREATMENT Care Teams Azure Developer Relationship Specialty Start Date End Date Taqueria Macario MD [address] [place] [address] PCP - General Internal Medicine 04/01/16 documented as of this encounter
--- OUTSIDE RECORDS SUMMARY | 2023-03-04 01:12 | External Medical Summary | Summary of Care ---
Author Name Unknown Organization [facility] Address [address] [place] [address] Phone [phone] Care Team Providers Care Gps Field Data Collector Name Role Phone Taqueria Ronquillo MD Primary Care Provider + Reason for Visit * Reason Comments Outpatient Testing Encounter Details Date Type Department Care Team Description 12/25/2022 [facility] [address] [place] [address] [facility] [address] [place] [address] Type II diabetes mellitus with neurological manifestations (HCC); Acquired hypothyroidism; Encounter for long-term (current) use of medications; Vitamin D deficiency Allergies Active Allergy Reactions Severity Noted [...] 07/26/2014 12/25/2022 Overview: BCC (R clavicle, L pentecostalism) Basal cell carcinoma 03/15/2013 07/26/2014 Overview: Face [...] mRNA, LNP-s, No Pre serve, 2-Dose Series ([employer]) 04/10/2021,06/17/2020,05/20/2020 Pneumococcal Conjugate Vacc, 13 Valent (Prevnar) [...] on file documented as of this encounter Plan of Treatment Upcoming Encounters Date Type Specialty Care Team Description 07/10/2023 Office Visit Internal Medicine Taqueria Ronquillo MD [address] [place] [address], [place] [address] Pending Results Name Type Priority Associated Diagnoses Date /Time COMPREHENSIVE METABOLIC PANEL Lab Routine Type II diabetes mellitus with neurological manifestations (HCC) 12/25/2022 3:24 PM EDT HEMOGLOBIN A1C Lab Routine Type II diabetes mellitus with neurological manifestations ([facility]) 12/25/2022 3:24 PM EDT LDL CHOLESTEROL (DIRECT [...] Vitamin D deficiency 12/25/2022 3:24 PM EDT Health Maintenance Due Date Last Done Comments [...] D LEVEL ONCE IN A LIFETIME-USE SMARTSET# [id number] Completed 11/26/2017, 04/01/2016, 02/28/2014, Additional history exists [...] as of this encounter Visit Diagnoses Diagnosis Type II diabetes mellitus with neurological manifestations (HCC) Type II or unspecified type diabetes mellitus with neurological manifestations, not stated as uncontrolled Acquired hypothyroidism Unspecified hypothyroidism Encounter for long-term (current) use of medications Encounter for long-term (current) use of other medications Vitamin D deficiency Unspecified vitamin D deficiency documented in this encounter Advance Directives Documents on File Type Date Recorded 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
--- OUTSIDE RECORDS SUMMARY | 2023-03-04 01:12 | External Medical Summary | Summary of Care ---
Author Name Unknown Organization [facility] Address [address] [place] [address] Phone [phone] Care Team Providers Care Field Applications Specialist Name Role Phone Taqueria Macario MD Primary Care Provider + Reason for Visit * Reason Comments eRx-Medication Refill Encounter Details Date Type Department Care Team (Late st Contact Info) Description 02/06/2023 Refill General Internal Medicine [facility] [address] [facility] [place] [address] Jovanny Salas PA-C [address] [facility] [place] [address] Hypothyroidism Allergies Active Allergy Reactions Criticality Noted Date Comments Simvastatin Muscle pain Low 10/16/2004 documented as of this encounter (statuses as of 02/07/2023) Medications Medication Sig Dispensed Refills Start Date [...] Additional Information Patient not taking.Reported on 12/25/2022 Metoprolol Tartrate 25 MG Oral Tablet (Lopressor)Indic [...] OTHER MEDS 90 Tablet 3 02/07/2023 Active Levothyroxine Sodium 75 MCG Oral Tablet (Levoxyl)Indicat ions:Hypothyroid ism TAKE 1 TABLET BY MOUTH DAILY AT LEAST 1/2 HOUR PRIOR TO BREAKFAST OR OTHER MEDS 90 Tablet 3 03/08/2022 3 Discontinued documented as of this encounter (statuses as of 02/07/2023) Active Problems Problem Noted Date Diagnosed Date [...] as of this encounter (statuses as of 02/07/2023) Resolved Problems Problem Noted Date Diagnosed Date Resolved Date Anemia due to vitamin B12 deficiency 08/06/2016 11/26/2017 Memory loss 04/01/2016 11/26/2017 Peripheral sensory neuropathy 02/19/2015 11/26/2017 Constipation, slow transit 09/27/2014 1 04/21/2014 Personal history of other ma lignant neoplasm of skin 07/26/2014 12/25/2022 Overview: BCC (R clavicle, L methodist) Basal cell carcinoma 03/15/2013 015 Overview: Face [...] as of this encounter (statuses as of 02/07/2023) Immunizations Name Administration Dates Next Due COVID-19 [...] Recorded PHQ Adult Total Score 0 12/25/2022 Sex and Gender Information Value Date Recorded Sex Assigned at Female 12/21/2019 10:37 AM EDT Gender Identity Female 12/21/2019 10:37 AM EDT Sexual Orientation Straight 12/21/2019 10 :37 AM EDT Job Start Date Occupation Industry Not on file Not on file Not on file documented as of this encounter Miscellaneous Notes * Telephone Encounter - Chyna Pacheco [facility] - 02/07/2023 9:32 AM EDTSigned Prescriptions: Disp Refills Levothyroxine Sodium 75 MCG Oral Tablet (L*90 Tab*3 Sig: TAKE 1 TABLET BY MOUTH DAILY AT LEAST 1/2 HOUR PRIOR TO BREAKFAST OR OTHER MEDSAuthorizing Provider: TAQUERIA MACARIO User: CHYNA PACHECO documented in this encounter Plan of Treatment Upcoming Encounters Date Type Department Care Team (Late st Contact Info) Description 07/10/2023 10:20 AM EDT Office Visit General Internal Medicine [facility] [address] [place] [address] Taqueria Macario MD [address] [place] [address] Health Maintenance Due Date Last Done Comments [...] D LEVEL ONCE IN A LIFETIME-USE SMARTSET# [id number] Completed 12/25/2022, 11/26/2017, 04/01/2016, Additional history exists GARDASIL-HPV IMMUNIZATION SERIES Aged Out No longer eligible based on patient's age to complete this topic MENINGOCOCCAL (MENACTRA/MENVEO) Aged Out No longer eligible based on patient's age to complete this topic documented as of this encounter Medical Devices Not on filedocumented as of this encounter Visit Diagnoses Diagnosis Hypothyroidism Unspecified hypothyroidism documented in this encounter Advance Directives Documents on File Type Date Recorded Patient Recruiting Intern Expl anation POLST 12/23/2021 [place] [facility] FOR LIFE-SUSTAINING TREATMENT Care Teams Field Applications Specialist Relationship Specialty Start Date End Date Taqueria Macario MD [address] [place] [address] PCP - General Internal Medicine 04/01/16 documented as of this encounter
--- OUTSIDE RECORDS SUMMARY | 2023-03-04 01:13 | External Medical Summary ---
Author Name Unknown Address Unknown Organization [id number]:[facility] [place] [address] [place] [address] Laboratory Report Ordering Provider Test Date Status RENALDO MCCONNELL 12/25/2022 15:24:09 Final Observation Date Value Abnormality Reference (Units ) Status LDL, (direct) 12/25/2022 15:24:09 134 Above high alana l <=129 (mg/dL) Final LDL Cholesterol Reference Ra nges (mg/dL):
<70 Target level for high risk ASCVD patient
<100 Optimal for general population
100-129 Near optimal for general population
130-159 Borderline high
160-189 High
>=190 Very high Performing Location [facility] - [address] [place] [address]
--- OUTSIDE RECORDS SUMMARY | 2023-03-04 01:13 | External Medical Summary ---
Author Name Unknown Address Unknown Organization [id number]:[facility] [place] [address] [place] [address] Laboratory Report Ordering Provider Test Date Status RENALDO MCCONNELL 12/25/2022 15:24:09 Final Observation Date Value Abnormality Reference (Units ) Status Vitamin B12 12/25/2022 15:24:09 270 700-8612 (pg/mL) Final Performing Location [facility] - [address] [place] [address]
--- OUTSIDE RECORDS SUMMARY | 2023-03-04 01:13 | External Medical Summary ---
Author Name Unknown Address Unknown Organization [id number]:[facility] - [address] [place] [address] Laboratory Report Ordering Provider Test Date Status RENALDO MCCONNELL 12/25/2022 15:24:09 Final Observation Date Value Abnormality Reference (Units ) Status BUN 12/25/2022 15:24:09 8 6-20 (mg/dL) Final Creatinine 12/25/2022 15:24:09 0.7 0.5-1.0 (mg/dL) Final Glomerular filtration rate/1.73 sq M.predicted [Volume Rate/Area] in Serum, Plasma or Blood by Creatinine-based formula (CKD-EPI) 12/25/2022 15:24:09 77 >=60 (mL/min) Final eGFR is calculated based on the CKD-EPI 2020 equation SODIUM 12/25/2022 15:24:09 142 135-146 (m mol/L) Final Potassium 12/25/2022 15:24:09 4.6 3.5-5.1 (m mol/L) Final Cl 12/25/2022 15:24:09 105 98-107 (mm ol/L) Final CO2 12/25/2022 15:24:09 26 22-32 (mmo l/L) Final Anion gap 12/25/2022 15:24:09 11 7-15 (mmol /L) Final Glucose 12/25/2022 15:24:09 102 70-120 (mg /dL) Final Albumin 12/25/2022 15:24:09 4.4 3.8-5.0 (g /dL) Final AST (Aspartate aminotransferase) 12/25/2022 15:24:09 19 10-35 (U/L) Fin al Alk Phos 12/25/2022 15:24:09 84 35-130 (U/ L) Final Bilirubin, Total 12/25/2022 15:24:09 0.5 <=1 .2 (mg/dL) Final Calcium 12/25/2022 15:24:09 9.7 8.4-10.2 ( mg/dL) Final Protein 12/25/2022 15:24:09 7.5 6.0-8.3 (g /dL) Final ALT (Alanine aminotransferase) 12/25/2022 15:24:09 7 Below low normal 10-35 (U/L) Final Performing Location [facility] - [address] [place] [address]
--- OUTSIDE RECORDS SUMMARY | 2023-03-04 01:13 | External Medical Summary ---
Author Name Unknown Address Unknown Organization [id number]:[facility] [place] [address] [place] [address] Laboratory Report Ordering Provider Test Date Status RENALDO MCCONNELL 12/25/2022 15:24:09 Final Observation Date Value Abnormality Reference (Units ) Status HbA1C 12/25/2022 15:24:09 6.0 Above high normal 4. 0-5.6 (%) Final The use of HbA1c to monitor glycemic status is based on normal hemoglobin and HbA composition. This test should not be used in patients with abnormal hemoglobin that affects the half life of the red blood cell or the in vivo glycation rates. Glucose, estimated average 12/25/2022 15:24:09 126 Above high normal <126 (mg/dL) Amol pak Performing Location [facility] [place] [address] [place] [address]
--- OUTSIDE RECORDS SUMMARY | 2023-03-04 01:13 | External Medical Summary ---
Author Name Unknown Address Unknown Organization [id number][place] [place] [facility] [address] [place] [address] Laboratory Report Ordering Provider Test Date Status DO ENEDINASONU 12/25/2022 15:24:09 Final Normal: <30 mg/g creatinine< br/>High: 30-300 mg/g creatinine
Very High: >300 mg/g creatinine
Nephrotic: >2200 mg/g creatinine Observation Date Value Abnormality Reference (Units ) Status Albumin, Urine 12/25/2022 15:24:09 3.64 (mg/dL) Final Creatinine, Urine 12/25/2022 15:24:09 117 (mg/dL) Final Albumin/Creatinine [Mass Ratio] in Urine 12/25/2022 15:24:09 31 Above high normal <30 (mg/g Creat) Final Performing Location [facility] [place] [facility] [address] [place] [address]
--- OUTSIDE RECORDS SUMMARY | 2023-03-04 01:13 | External Medical Summary | Summary of Care ---
Author Name Unknown Organization [facility] Address [address] [place] [address] Phone [phone] Care Team Providers Care Psychiatry Adult Physician Name Role Phone Taqueria Ronquillo MD Primary Care Provider + Reason for Visit * Reason Comments eRx-Medication Refill Encounter Details Date Type Department Care Team Description 09/13/2022 Refill General Internal Medicine [facility] [address] [facility] [place] [place] [address] Taqueria Ronquillo MD [address] [facility] [place] [place] [address] SVT (supraventricular tachycardia) ([facility]) Allergies Active Allergy Reactions Severity Noted Date Comments Simvastatin Muscle pain Low 10/16/2004 documented as of this encounter (statuses as of 09/13/2022) Medications Medication Sig Dispensed Refills Start Date End Date Status Cholecalciferol (VITAMIN D) 2000 UNITS CapsuleIndications: Vitamin D deficiency Take by mouth 2,000 Units daily . 0 04/02/2016 Active aspirin enteric coated 81 [...] Active Additional Information Patient not taking.Reported on 12/23/2021 Syringe/Needle, Disp, (BD SYRINGE/NEEDLE) 25G X 5/8" 3 ML MISCIndications:B12 deficiency Use daily for one week with b12 injections then use weekly for one month for b12 injections then once monthly for b12 injection 4 Each 1 11/26/2017 Active Additional Information Patient not taking.Reported on 12/23/2021 Levothyroxine Sodium 75 MCG Oral Tablet (Levoxyl)Indication [...] as of this encounter (statuses as of 09/13/2022) Active Problems Problem Noted Date DNR (do not resuscitate) 12/23/2021 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 11/26/2017 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 Senile osteoporosis Aortic valve insufficiency Acquired hypothyroidism Vitamin D deficiency Slow transit constipation documented as of this encounter (statuses as of 09/13/2022) Resolved Problems Problem Noted Date Resolved Date Anemia due to vitamin B12 deficiency 08/06/2016 11/26/2017 Memory loss 04/01/2016 11/26/2017 Peripheral sensory neuropathy 02/19/2015 Constipation, slow transit 09/27/201402/19 Basal cell carcinoma 03/15/2013 07/26/2014 Overview: Face [...] Other specified glaucoma 008 Other cataract 08/04/2007 Hip fracture, left 09/07/2012 Acquired underactive thyroid documented as of this encounter (statuses as of 09/13/2022) Immunizations Name Administration Dates Next Due COVID-19 mRNA, LNP-s, No Pre serve, 2-Dose Series (Aviary) 04/10/2021,06/17/2020,05/20/2020 Pneumococcal Conjugate Vacc, 13 Valent (Prevnar) 07/16/2015 Pneumococcal Polysaccharide PPV23 (Pneumovax) 08/09/2011 Seasonal Influenza, Quadriva lent Hd (Fluzone Hd) 12/23/2021,04/10/2021 Seasonal Influenza, Quadriva lent, No Preserve, Adjuvanted, 65+ Yrs, IM 12/21/2019 Seasonal Influenza, Quadriva lent, No Preserve, IM [...] encounter Miscellaneous Notes * Telephone Encounter - Mirian Gordillo [facility] - 09/13/2022 7:31 AM EDTRefused Prescriptions: Disp Refills Metoprolol Tartrate 25 MG Oral Tablet (Lop*90 Tab*3 Sig: TAKE ONE-HALF TABLET BY MOUTH TWICE DAILYRefused By: MIRIAN GORDILLO MRejordana for Refusal: Too soon-------- documented in this encounter Plan of Treatment Upcoming Encounters Date Type Specialty Care Team Description 12/25/2022 [facility] [address] [place] [id number] Health Maintenance Due Date Last Done Comments Zoster Vaccines (2 of 3) 11/08/2012 09/13/2012 *BISPHONATE OR OTHER ACCEPTABLE MEDICATION NEEDED FOR OSTEOPOROSIS (REFER TO SMARTSET #1146) 04/04/2016 Depression Screening, Annual for Pts 12 and Over 12/20/2020 12/21/2019 COVID-19 Vaccine (4 - Booster for Pfizer series) 06/05/2021 04/10/2021, 06/17/2020, 05/20/2020 DIABETES-EYE EXAM 07/23/2021 07/23/2020, , 12/09/2018, Additional history exists DIABETES-FOOT EXAM 04/10/2022 04/10/2021, 0 12/21/2019, 12/09/2018, Additional history exists HbA1c 06/22/2022 12/23/2021, 03/14, 12/21/2019, Additional history exists Albumin/Creatinine Ratio 12/23/2022 022, 08/06/2016, 04/27/2014, Additional history exists TSH 12/23/2022 12/23/2021, 08/11, 04/10/2021, Additional history exists DTaP,Tdap,and Td Vaccines (2 - Td or Tdap) 04/13/2026 04/13/2016, 08/12/2007 DXA Scan Discontinued 07/18/2014, 05/15, 04/10/2010, Additional history exists Pneumococcal Vaccine: 65+ Years Completed 07/16/2015, 08/09/2011, 01/22/2005 VITAMIN D LEVEL ONCE IN A LIFETIME-USE SMARTSET# [id number] Completed 11/26/2017, 04/01/2016, 02/28/2014, Additional history exists Influenza Vaccine (FLU shot) Completed 12/23/2021, 04/10/2021, 12/21/2019, Additional history exists GARDASIL-HPV IMMUNIZATION SERIES Aged [...] encounter Visit Diagnoses Diagnosis SVT (supraventricular tachycardia) (HCC) Other specified cardiac dysrhythmias documented in this encounter Advance Directives Documents on File Type Date Recorded Patient Marketing Technology Coordinator Expl anation POLST 12/23/2021 [facility] FOR LIFE-SUSTAINING TREATMENT Care Teams Psychiatry Adult Physician Relationship Specialty Start Date End Date Taqueria Ronquillo MD [address] [place] [address] PCP - General Internal Medicine 04/01/16 documented as of this encounter
--- OUTSIDE RECORDS SUMMARY | 2023-03-04 01:13 | External Medical Summary | Summary of Care ---
Author Name Unknown Organization [facility] Address [address] [place] [address] Phone [phone] Care Team Providers Care Child Protective Services Social Worker Name Role Phone Taqueria Macario MD Primary Care Provider + Reason for Visit * Reason Comments eRx-Medication Refill Encounter Details Date Type Department Care Team Description 09/11/2022 Refill General Internal Medicine [facility] [address] [place] [address] Taqueria Macario MD [address] [address] SVT (supraventricular tachycardia) ([facility]) Allergies Active Allergy Reactions Severity Noted Date Comments Simvastatin Muscle pain Low 10/16/2004 documented as of this encounter (statuses as of 09/12/2022) Medications Medication Sig Dispensed Refills Start Date End Date Status Cholecalciferol (VITAMIN D) 2000 UNITS CapsuleIndicatio ns:Vitamin D deficiency Take by mouth 2,000 Units [...] 12/23/2021 Levothyroxine Sodium 75 MCG Oral Tablet (Levoxyl)Indicat ions:Hypothyroid ism TAKE 1 TABLET BY MOUTH DAILY AT LEAST 1/2 HOUR PRIOR TO BREAKFAST OR OTHER MEDS 90 Tablet 3 03/08/2022 Active Cyanocobalamin 1000 MCG/ML Injection Solution (Cyanocobalamin) Indications:B12 deficiency INJECT 1,000 MCG UNDER THE SKIN EVERY 30 DAYS. 3 mL 2 04/29/2022 Active Metoprolol Tartrate 25 MG Oral Tablet (Lopressor)Indic ations:SVT (supraventricula r tachycardia) (HCC) TAKE ONE-HALF TABLET BY MOUTH TWICE DAILY 90 Tablet 1 09/12/2022 Active Metoprolol Tartrate 25 MG Oral Tablet (Lopressor)Indic ations:SVT (supraventricula r tachycardia) (HCC) TAKE ONE-HALF TABLET BY MOUTH TWICE DAILY 90 Tablet 1 03/25/2022 3 Discontinued documented as of this encounter (statuses as of 09/12/2022) Active Problems Problem Noted Date DNR (do [...] skin 07/26/2014 Overview: BCC (R clavicle, L judaism) SVT (supraventricular tachycardia) 10/24 Venous insufficiency 12/10/2011 Dyslipidemia, goal LDL below 100 012 ADVANCE DIRECTIVE INFORMATION 07/16/2005 Overview: No, Advance Directive brochure given to patient at prior appointment. Senile osteoporosis Aortic valve insufficiency Acquired hypothyroidism Vitamin D deficiency Slow transit constipation documented as of this encounter (statuses as of 09/12/2022) Resolved Problems Problem Noted Date Resolved Date [...] as of this encounter (statuses as of 09/12/2022) Immunizations Name Administration Dates Next Due COVID-19 mRNA, LNP-s, No Pre serve, 2-Dose Series ([employer]) 04/10/2021,06/17/2020,05/20/2020 Pneumococcal Conjugate Vacc, 13 Valent (Prevnar) [...] encounter Miscellaneous Notes * Telephone Encounter - Leana Schmitt [facility] - 09/12/2022 1:13 PM EDTSigned Prescriptions: Disp Refills Metoprolol Tartrate 25 MG Oral Tablet (Lop*90 Tab*1 Sig: TAKE ONE-HALF TABLET BY MOUTH TWICE DAILYAuthorizing Provider: TAQUERIA MACARIO User: LEANA SCHMITT documented in this encounter Plan of Treatment Upcoming Encounters Date Type Specialty Care Team Description 12/25/2022 Office Visit Internal Medicine Taqueria Macario MD [address] [place] [address] Health Maintenance Due Date Last Done Comments [...] D LEVEL ONCE IN A LIFETIME-USE SMARTSET# [id number] Completed 11/26/2017, 04/01/2016, 02/28/2014, Additional history exists [...] Documents on File Type Date Recorded Patient Assistant Elementary Teacher Expl anation POLST 12/23/2021 [place] [facility] FOR LIFE-SUSTAINING TREATMENT Care Teams Child Protective Services Social Worker Relationship Specialty Start Date End Date Taqueria Macario MD [address] [place] [id number] PCP - General Internal Medicine 04/01/16 documented as of this encounter
[2023-03-04] MEDS ORDERED: PROMETHAZINE HCL 6.25 MG in SODIUM CHLORIDE 0.9% 50 ML IV PRN (01:18)
[2023-03-04] MEDS ORDERED: LACTATED RINGER'S 1,000 ML IV ONE (01:19)
[2023-03-04] MEDS ORDERED: CARBOHYDRATES FOR HYPOGLYCEMIA PO PRN (03:23)
[2023-03-04] MEDS ORDERED: GLUCAGON FOR INJ 1 MG VIAL SQ PRN (03:23)
[2023-03-04] MEDS ORDERED: DEXTROSE 50% 50 ML SYRINGE IV PRN (03:23)
[2023-03-04] MEDS ORDERED: ACETAMINOPHEN 325 MG TAB PO PRN (03:23)
[2023-03-04] MEDS ORDERED: GLUCOSE 10 TAB/TUBE PO PRN (03:23)
[2023-03-04] MEDS ORDERED: GLUCOSE 40% GEL 15 GM TUBE PO PRN (03:23)
[2023-03-04] MEDS: INSULIN ASPART PER UNIT CHARGE SC SCH ×5 (04:54→21:33)
[2023-03-04 05:11] LABS: Basophils # (auto) 0.02 K/uL (0.00-0.20); Basophils % (auto) 0.5 %; Eosinophils # (auto) 0.17 K/uL (0.00-0.50); Hematocrit (blood only) 35.4 % (37.0-47.0); Hemoglobin 11.3 g/dl (12.0-16.0); Immature Granulocytes # (auto) 0.01 K/uL (0.01-0.20); Immature Granulocytes % (auto) 0.2 %; Lymphocytes # (auto) 1.31 K/uL (1.20-3.40); Lymphocytes % (auto) 30.5 %; Mean Corpuscular Hgb Conc 31.9 g/dL (32.0-36.0); Mean Corpuscular Volume 84.5 fL (80.0-100.0); Mean Platelet Volume 9.9 fL (9.4-12.4); Monocytes # (auto) 0.47 K/uL (0.11-0.59); Monocytes % (auto) 10.9 %; Neutrophils # (auto) 2.32 K/uL (1.40-6.50); Neutrophils % (auto) 53.9 %; Platelet Count 169 K/uL (130-400); RDW Coefficient of Variation 15.9 % (11.5-14.5); RDW Standard Deviation 49.5 fL (36.4-46.3); Red Blood Count 4.19 M/uL (4.20-5.40)
[2023-03-04 05:24] LABS: Anion Gap 6 (3-11); BUN Creatinine Ratio 14.9 (10-20); Blood Urea Nitrogen 10 mg/dl (6-23); Calcium 8.6 mg/dl (8.6-10.3); Carbon Dioxide 27 mmol/L (21-32); Chloride 107 mmol/L (98-107); Est GFR (African American) 90.3 ml/min; Est GFR (Non-African American) 77.9 ml/min; Glucose 102 mg/dl (70-99(Fasting)); Sodium 140 mmol/L (136-145)
[2023-03-04] MEDS ORDERED: Patient's HEIGHT &/or WEIGHT Needed SCH (06:15)
[2023-03-04] MEDS: LEVOTHYROXINE SODIUM 75 MCG TABLET PO SCH (07:35)
[2023-03-04] MEDS ORDERED: METOPROLOL TARTRATE 25 MG TAB PO SCH (09:00)
[2023-03-04] MEDS: Patient's HEIGHT &/or WEIGHT Needed SCH (09:47)
[2023-03-04] MEDS ORDERED: guaiFENesin 600 MG TABCR PO ONE (10:00)
[2023-03-04] MEDS: ENOXAPARIN INJ 30 MG/0.3 ML SYR SQ SCH (10:52)
[2023-03-04] MEDS ORDERED: lisinopril 2.5 MG TAB PO SCH (19:35)
--- NOTE | 2023-03-04 19:50 | Communication Note ---
Date of Service: March 04, 2023 Made aware by RN of uncontrolled blood pressure. SBP 140-180s since a.m. Heart rate 60s Episodic agitation. AP Hypertensive urgency Delirium Add lisinopril to current beta-dao Rx Haldol as needed agitation Will relay to AM provider.
[2023-03-04] MEDS: METOPROLOL TARTRATE 25 MG TAB PO SCH (20:35)
[2023-03-04] MEDS: guaiFENesin 600 MG TABCR PO SCH (20:35)
[2023-03-05] MEDS ORDERED: OLANZapine 10 MG/2.1 ML SDV IM PRN (00:06)
[2023-03-05] MEDS ORDERED: OLANZAPINE 2.5 MG TAB PO PRN (00:06)
[2023-03-05] MEDS ORDERED: HALOPERIDOL LACTATE 5 MG/ML 1 ML VIAL IM PRN (00:08)
[2023-03-05] MEDS ORDERED: haloperidoL 1 MG TAB PO PRN (00:08)
[2023-03-05] MEDS: cefTRIAXone SODIUM 2,000 MG in DEXTROSE 5 % MINI-B 50 ML IV SCH ×2 (00:30→22:45)
[2023-03-05] MEDS ORDERED: lisinopril 2.5 MG TAB PO STA (02:28)
[2023-03-05] MEDS: LEVOTHYROXINE SODIUM 75 MCG TABLET PO SCH (03:57)
--- NOTE | 2023-03-05 07:06 | Electrocardiogram Report ---
Test Reason : Blood Pressure : / mmHG Vent. Rate : 086 BPM Atrial Rate : 086 BPM P-R Int : 148 ms QRS Dur : 070 ms QT Int : 360 ms P-R-T Axes : 071 047 062 degrees QTc Int : 430 ms Sinus rhythm with occasional Premature ventricular complexes Otherwise normal ECG When compared with ECG of 05-DEC-2016 16:25, No significant change Confirmed by Silver Neves ([id number]) on 03/05/2023 7:05:37 AM Referred By: REFERRED SELF Confirmed By:Silver Neves
--- NOTE | 2023-03-05 07:12 | Hospitalist Progress Note ---
Date of Service March 05, 2023 Assessment & Plan (1) Weakness: Plan: Multifactorial Complicated UTI, no sepsis for now U cultx posit. for E. coli, pansensitive, cont. ceftriaxone +Parainfluenza infection Supportive management for parainfluenza infection Guaifenesin Pt breathing comfortably on RA Irregular pulse possibly from PVCs hx PVST Medical telemetry given arrhythmia concerns mild AR hypertension, BP elevated upon arrival at the ER - started on lisinopril, will monitor Hyperlipidemia/statin intolerance DM 2 diet-controlled, well-controlled as of recent hemoglobin A1c of December 2022 ISS BG goal 110-140, carb count coverage Hypothyroidism, euthyroid as of current TSH level Dementia PT OT eval, CM involved in DC DVT prophylaxis with Lovenox subcu DNR as per patient's prior directives as per daughter/POA, Ms. Lisa Chen - [phone]. Admission and Anticipated Discharge Date Admission Date: March 04, 2023 Subjective Pt seen in follow up of UTI, + parainfluenza Agitated overnight and hypertensive (see public information coordinator note), was started on lisinopril for BP control Met with patient's daughter at the bedside yesterday. Patient's daughter is RN anesth. She would like to discuss discharge plans with case management. CM contacted. Today met with both daughters at the bedside and CM at the bedside. Pt reports feeling well. Answers simple questions appropriately. Denies any fever, chills, chest pain, shortness of breath Review of Systems Review of Systems: All systems reviewed & are unremarkable except as noted in Subjective Physical Exam Physical Exam: GENERAL: Comfortable, pleasant, demented, no respiratory distress SKIN: Normal color, warm HEENT: NC/AT, [place] palpebral conjunctivae, no ptosis NECK : Supple, no tenderness CHEST : Decreased breath sounds, no tenderness HEART : Bradycardic, systolic murmur ABDOMEN: Some distention, nontender EXTREMITIES : No LE swelling/tenderness, moves extremities NEUROLOGIC : Demented, no facial asymmetry, speech fluent, moves extremities Results & Data Results & Data Vital Signs (Past 12 Hours) Vital Signs Temp Pulse Pulse Resp BP Pulse Ox O2 Del Method 03/05/23 06:35 60 03/05/23 04:03 36.6 C 61 18 163/72 H 95 Room Air 03/05/23 01:13 36.3 C L 62 18 189/77 H 93 Room Air 03/04/23 21:29 53 L 03/04/23 20:30 36.5 C 55 L 18 181/66 H 96 Room Air Laboratory Results 03/05/23 03/05/23 03/04/23 Range/Units 09:31 08:19 20:48 WBC 5.68 (4.8-10.8) K/ul RBC 4.38 (4.20-5.40) M/uL Hgb 11.9 L (12.0-16.0) g/dl Hct 36.3 L (37.0-47.0) % MCV 82.9 (80.0-100.0) fL MCH 27.2 (25.0-34.0) pg MCHC 32.8 (32.0-36.0) g/dL RDW Std Deviation 48.1 H (36.4-46.3) fL RDW Coeff of Wong 15.8 H (11.5-14.5) % Plt Count 184 (130-400) K/uL MPV 10.2 (9.4-12.4) fL Sodium 138 (136-145) mmol/L Potassium 3.7 (3.5-5.1) mmol/L Chloride 106 (98-107) mmol/L Carbon Dioxide 24 (21-32) mmol/L Anion Gap 8 (3-11) BUN 11 (6-23) mg/dl Creatinine 0.61 (0.6-1.2) mg/dl Est Cr Clr Drug Dosing 56.9 ml/min Est GFR ( Amer) 93.2 ml/min Est GFR (Non-Af Amer) 80.4 ml/min BUN/Creatinine Ratio 18.0 (10-20) Glucose 133 H (70-99(Fasting)) mg/dl POC Glucose 106 H 73 (70-99) mg/dl Calcium 9.0 (8.6-10.3) mg/dl Phosphorus 2.8 (2.5-4.9) mg/dl Magnesium 1.7 (1.7-2.4) mg/dl 03/04/23 03/04/23 Range/Units 18:24 12:49 WBC (4.8-10.8) K/ul RBC (4.20-5.40) M/uL Hgb (12.0-16.0) g/dl Hct (37.0-47.0) % MCV (80.0-100.0) fL MCH (25.0-34.0) pg MCHC (32.0-36.0) g/dL RDW Std Deviation (36.4-46.3) fL RDW Coeff of Wong (11.5-14.5) % Plt Count (130-400) K/uL MPV (9.4-12.4) fL Sodium (136-145) mmol/L Potassium (3.5-5.1) mmol/L Chloride (98-107) mmol/L Carbon Dioxide (21-32) mmol/L Anion Gap (3-11) BUN (6-23) mg/dl Creatinine (0.6-1.2) mg/dl Est Cr Clr Drug Dosing ml/min Est GFR ( Amer) ml/min Est GFR (Non-Af Amer) ml/min BUN/Creatinine Ratio (10-20) Glucose (70-99(Fasting)) mg/dl POC Glucose 122 H 143 H (70-99) mg/dl Calcium (8.6-10.3) mg/dl Phosphorus (2.5-4.9) mg/dl Magnesium (1.7-2.4) mg/dl Medications Administered Current Inpatient Medications Acetaminophen (Acetaminophen 325 Mg Tab) 650 mg PO Q4H PRN PRN Reason: Pain or Fever Stop: 04/03/23 03:22 Dextrose (Dextrose 50% 50 Ml Syringe) 25 - 50 ml IV UD PRN; Protocol PRN Reason: Hypoglycemia Protocol Stop: 04/03/23 03:22 Enoxaparin Sodium (Enoxaparin Inj 30 Mg/0.3 Ml Syr) 30 mg SQ QAM [facility] Stop: 04/03/23 09:59 Last Admin: 03/04/23 10:52 Dose: 30 mg Glucagon (Glucagon For Inj 1 Mg Vial) 1 mg SQ UD PRN; Protocol PRN Reason: Hypoglycemia Protocol Stop: 04/03/23 03:22 Glucose (Glucose 10 Tab/Tube) 4 - 8 tab PO UD PRN; Protocol PRN Reason: Hypoglycemia Treatment Stop: 04/03/23 03:22 Glucose (Glucose 40% Gel 15 Gm Tube) 15 - 30 gm PO UD PRN; Protocol PRN Reason: Hypoglycemia Protocol Stop: 12/22/23 03:22 Guaifenesin (Guaifenesin 600 Mg Tabcr) 600 mg PO Q12 [facility] Stop: 04/03/23 20:59 Last Admin: 03/04/23 20:35 Dose: 600 mg Haloperidol (Haloperidol 1 Mg Tab) 2 mg PO Q2H PRN PRN Reason: Anxiety/Agitation Stop: 04/04/23 00:07 Last Admin: 03/05/23 01:05 Dose: 2 mg Haloperidol Lactate (Haloperidol Lactate 5 Mg/Ml 1 Ml Vial) 2 mg IM Q2H PRN PRN Reason: Agitation Stop: 04/04/23 00:07 Promethazine HCl 6.25 mg/ (Sodium Chloride) 50.25 mls @ 201 mls/hr IV Q6H PRN PRN Reason: Nausea And Vomiting Stop: 04/03/23 01:17 Ceftriaxone Sodium 2,000 mg/ (Dextrose) 50 mls @ 100 mls/hr IV Q24H [facility]; Protocol Stop: 03/14/23 23:29 Last Infusion: 03/05/23 01:00 Dose: Infused Insulin Aspart (Insulin Aspart Per Unit Charge) 0 units SC ACHS [facility] Stop: 04/03/23 03:22 Last Admin: 03/04/23 21:33 Dose: Not Given Levothyroxine Sodium (Levothyroxine Sodium 75 Mcg Tablet) 75 mcg PO DAILYBB [facility] Stop: 04/03/23 06:29 Last Admin: 03/05/23 03:57 Dose: 75 mcg Lisinopril (Lisinopril 5 Mg Tab) 5 mg PO HS [facility] Stop: 04/04/23 20:59 Metoprolol Tartrate (Metoprolol Tartrate 25 Mg Tab) 12.5 mg PO BID [facility] Stop: 04/03/23 20:59 Last Admin: 03/04/23 20:35 Dose: 12.5 mg Miscellaneous (Carbohydrates For Hypoglycemia ) 15 - 30 gm PO UD PRN PRN Reason: Hypoglycemia Protocol Stop: 04/03/23 03:22
[2023-03-05] MEDS: ENOXAPARIN INJ 30 MG/0.3 ML SYR SQ SCH (08:20)
[2023-03-05] MEDS: guaiFENesin 600 MG TABCR PO SCH ×2 (08:20→22:39)
[2023-03-05] MEDS: METOPROLOL TARTRATE 25 MG TAB PO SCH ×2 (08:20→22:40)
[2023-03-05] MEDS ORDERED: lisinopril 2.5 MG TAB PO SCH (09:00)
[2023-03-05] MEDS: INSULIN ASPART PER UNIT CHARGE SC SCH ×4 (09:25→22:40)
[2023-03-05 10:02] LABS: Hematocrit (blood only) 36.3 % (37.0-47.0); Hemoglobin 11.9 g/dl (12.0-16.0); Mean Corpuscular Hemoglobin 27.2 pg (25.0-34.0); Mean Corpuscular Hgb Conc 32.8 g/dL (32.0-36.0); Mean Corpuscular Volume 82.9 fL (80.0-100.0); Mean Platelet Volume 10.2 fL (9.4-12.4); Platelet Count 184 K/uL (130-400); RDW Coefficient of Variation 15.8 % (11.5-14.5); RDW Standard Deviation 48.1 fL (36.4-46.3); Red Blood Count 4.38 M/uL (4.20-5.40); White Blood Count 5.68 K/ul (4.8-10.8)
[2023-03-05 10:22] LABS: Creatinine Clr Calc Pharmacy 56.9 ml/min; Est GFR (African American) 93.2 ml/min; Est GFR (Non-African American) 80.4 ml/min; Magnesium 1.7 mg/dl (1.7-2.4); Phosphorus 2.8 mg/dl (2.5-4.9); Potassium 3.7 mmol/L (3.5-5.1)
[2023-03-05] MEDS ORDERED: POTASSIUM CHLORIDE 20 MEQ/15 ML UDC PO STA (11:45)
[2023-03-05] MEDS: MAGNESIUM OXIDE 400 MG TAB PO SCH (12:24)
[2023-03-05] MEDS: lisinopril 5 MG TAB PO SCH (22:39)
[2023-03-06] MEDS: LEVOTHYROXINE SODIUM 75 MCG TABLET PO SCH (05:37)
[2023-03-06 06:26] LABS: Hematocrit (blood only) 36.5 % (37.0-47.0); Hemoglobin 11.8 g/dl (12.0-16.0); Mean Corpuscular Hemoglobin 27.1 pg (25.0-34.0); Mean Corpuscular Hgb Conc 32.3 g/dL (32.0-36.0); Mean Corpuscular Volume 83.9 fL (80.0-100.0); Mean Platelet Volume 10.1 fL (9.4-12.4); Platelet Count 185 K/uL (130-400); RDW Coefficient of Variation 15.8 % (11.5-14.5); Red Blood Count 4.35 M/uL (4.20-5.40)
[2023-03-06 06:55] LABS: BUN Creatinine Ratio 21.5 (10-20); Calcium 8.9 mg/dl (8.6-10.3); Creatinine Clr Calc Pharmacy 53.4 ml/min; Est GFR (African American) 91.2 ml/min; Est GFR (Non-African American) 78.7 ml/min; Magnesium 1.9 mg/dl (1.7-2.4); Phosphorus 3.2 mg/dl (2.5-4.9)
[2023-03-06] MEDS: guaiFENesin 600 MG TABCR PO SCH ×2 (08:15→20:43)
[2023-03-06] MEDS: ENOXAPARIN INJ 30 MG/0.3 ML SYR SQ SCH (08:15)
[2023-03-06] MEDS: METOPROLOL TARTRATE 25 MG TAB PO SCH ×2 (08:16→20:42)
[2023-03-06] MEDS: MAGNESIUM OXIDE 400 MG TAB PO SCH (08:16)
--- NOTE | 2023-03-06 08:37 | Hospitalist Progress Note ---
Date of Service March 06, 2023 Assessment & Plan (1) Weakness: Plan: Multifactorial Complicated UTI, no sepsis for now U cultx posit. for E. coli, pansensitive, cont. ceftriaxone +Parainfluenza infection Supportive management for parainfluenza infection Guaifenesin Pt breathing comfortably on RA Irregular pulse possibly from PVCs hx PVST Medical telemetry given arrhythmia concerns mild AR hypertension, BP elevated upon arrival at the ER - started on lisinopril, will monitor Hyperlipidemia/statin intolerance DM 2 diet-controlled, well-controlled as of recent hemoglobin A1c of December 2022 ISS BG goal 110-140, carb count coverage Hypothyroidism, euthyroid as of current TSH level Dementia PT OT eval, CM involved in DC DVT prophylaxis with Lovenox subcu DNR as per patient's prior directives as per daughter/POA, Ms. Lisa Chen - [phone]. Dispo - likely [facility], CM involved Admission and Anticipated Discharge Date Admission Date: March 04, 2023 Subjective Pt seen in follow up of UTI, + parainfluenza Pt is sitting in chair, in NAD, reports feeling well. Answers simple questions appropriately however can't provide much history. No fevers chills chest pain shortness of breath. No dysuria or urinary frequency. Met with patient's daughters at the bedside yesterday and CM who is involved in DC planning. Review of Systems Review of Systems: All systems reviewed & are unremarkable except as noted in Subjective Physical Exam Physical Exam: GENERAL: Comfortable, pleasant, demented, no respiratory distress SKIN: Normal color, warm HEENT: NC/AT, [place] palpebral conjunctivae, no ptosis NECK : Supple, no tenderness CHEST : Decreased breath sounds, no tenderness HEART : Bradycardic, systolic murmur ABDOMEN: Some distention, nontender EXTREMITIES : No LE swelling/tenderness, moves extremities NEUROLOGIC : Demented, no facial asymmetry, speech fluent, moves extremities Results & Data Results & Data Vital Signs (Past 12 Hours) Vital Signs Temp Pulse Pulse Resp BP Pulse Ox O2 Del Method 03/06/23 08:00 36.7 C 59 L 18 162/72 H 95 Room Air 03/05/23 21:58 62 03/05/23 21:00 Room Air Laboratory Results 03/06/23 03/06/23 03/05/23 Range/Units 08:12 05:54 20:15 WBC 6.10 (4.8-10.8) K/ul RBC 4.35 (4.20-5.40) M/uL Hgb 11.8 L (12.0-16.0) g/dl Hct 36.5 L (37.0-47.0) % MCV 83.9 (80.0-100.0) fL MCH 27.1 (25.0-34.0) pg MCHC 32.3 (32.0-36.0) g/dL RDW Std Deviation 49.0 H (36.4-46.3) fL RDW Coeff of Wong 15.8 H (11.5-14.5) % Plt Count 185 (130-400) K/uL MPV 10.1 (9.4-12.4) fL Sodium 139 (136-145) mmol/L Potassium 4.0 (3.5-5.1) mmol/L Chloride 107 (98-107) mmol/L Carbon Dioxide 24 (21-32) mmol/L Anion Gap 8 (3-11) BUN 14 (6-23) mg/dl Creatinine 0.65 (0.6-1.2) mg/dl Est Cr Clr Drug Dosing 53.4 ml/min Est GFR ( Amer) 91.2 ml/min Est GFR (Non-Af Amer) 78.7 ml/min BUN/Creatinine Ratio 21.5 H (10-20) Glucose 97 (70-99(Fasting)) mg/dl POC Glucose 92 141 H (70-99) mg/dl Calcium 8.9 (8.6-10.3) mg/dl Phosphorus 3.2 (2.5-4.9) mg/dl Magnesium 1.9 (1.7-2.4) mg/dl 03/05/23 03/05/23 03/05/23 Range/Units 17:14 12:28 09:31 WBC 5.68 (4.8-10.8) K/ul RBC 4.38 (4.20-5.40) M/uL Hgb 11.9 L (12.0-16.0) g/dl Hct 36.3 L (37.0-47.0) % MCV 82.9 (80.0-100.0) fL MCH 27.2 (25.0-34.0) pg MCHC 32.8 (32.0-36.0) g/dL RDW Std Deviation 48.1 H (36.4-46.3) fL RDW Coeff of Wong 15.8 H (11.5-14.5) % Plt Count 184 (130-400) K/uL MPV 10.2 (9.4-12.4) fL Sodium 138 (136-145) mmol/L Potassium 3.7 (3.5-5.1) mmol/L Chloride 106 (98-107) mmol/L Carbon Dioxide 24 (21-32) mmol/L Anion Gap 8 (3-11) BUN 11 (6-23) mg/dl Creatinine 0.61 (0.6-1.2) mg/dl Est Cr Clr Drug Dosing 56.9 ml/min Est GFR ( Amer) 93.2 ml/min Est GFR (Non-Af Amer) 80.4 ml/min BUN/Creatinine Ratio 18.0 (10-20) Glucose 133 H (70-99(Fasting)) mg/dl POC Glucose 93 88 (70-99) mg/dl Calcium 9.0 (8.6-10.3) mg/dl Phosphorus 2.8 (2.5-4.9) mg/dl Magnesium 1.7 (1.7-2.4) mg/dl Medications Administered Current Inpatient Medications Acetaminophen (Acetaminophen 325 Mg Tab) 650 mg PO Q4H PRN PRN Reason: Pain or Fever Stop: 04/03/23 03:22 Dextrose (Dextrose 50% 50 Ml Syringe) 25 - 50 ml IV UD PRN; Protocol PRN Reason: Hypoglycemia Protocol Stop: 04/03/23 03:22 Enoxaparin Sodium (Enoxaparin Inj 30 Mg/0.3 Ml Syr) 30 mg SQ QAM [facility] Stop: 04/03/23 09:59 Last Admin: 03/06/23 08:15 Dose: 30 mg Glucagon (Glucagon For Inj 1 Mg Vial) 1 mg SQ UD PRN; Protocol PRN Reason: Hypoglycemia Protocol Stop: 04/03/23 03:22 Glucose (Glucose 10 Tab/Tube) 4 - 8 tab PO UD PRN; Protocol PRN Reason: Hypoglycemia Treatment Stop: 04/03/23 03:22 Glucose (Glucose 40% Gel 15 Gm Tube) 15 - 30 gm PO UD PRN; Protocol PRN Reason: Hypoglycemia Protocol Stop: 04/03/23 03:22 Guaifenesin (Guaifenesin 600 Mg Tabcr) 600 mg PO Q12 [facility] Stop: 04/03/23 20:59 Last Admin: 03/06/23 08:15 Dose: 600 mg Haloperidol (Haloperidol 1 Mg Tab) 2 mg PO Q2H PRN PRN Reason: Anxiety/Agitation Stop: 04/04/23 00:07 Last Admin: 03/05/23 01:05 Dose: 2 mg Haloperidol Lactate (Haloperidol Lactate 5 Mg/Ml 1 Ml Vial) 2 mg IM Q2H PRN PRN Reason: Agitation Stop: 04/04/23 00:07 Promethazine HCl 6.25 mg/ (Sodium Chloride) 50.25 mls @ 201 mls/hr IV Q6H PRN PRN Reason: Nausea And Vomiting Stop: 04/03/23 01:17 Ceftriaxone Sodium 2,000 mg/ (Dextrose) 50 mls @ 100 mls/hr IV Q24H [facility]; Protocol Stop: 03/14/23 23:29 Last Infusion: 03/05/23 23:15 Dose: Infused Insulin Aspart (Insulin Aspart Per Unit Charge) 0 units SC ACHS [facility] Stop: 04/03/23 03:22 Last Admin: 03/05/23 22:40 Dose: 1 units Levothyroxine Sodium (Levothyroxine Sodium 75 Mcg Tablet) 75 mcg PO DAILYBB [facility] Stop: 04/03/23 06:29 Last Admin: 03/06/23 05:37 Dose: 75 mcg Lisinopril (Lisinopril 5 Mg Tab) 5 mg PO HS [facility] Stop: 04/04/23 20:59 Last Admin: 03/05/23 22:39 Dose: 5 mg Magnesium Oxide (Magnesium Oxide 400 Mg Tab) 400 mg PO QAM [facility] Stop: 04/04/23 11:44 Last Admin: 03/06/23 08:16 Dose: 400 mg Metoprolol Tartrate (Metoprolol Tartrate 25 Mg Tab) 12.5 mg PO BID [facility] Stop: 04/03/23 20:59 Last Admin: 03/06/23 08:16 Dose: Not Given Miscellaneous (Carbohydrates For Hypoglycemia ) 15 - 30 gm PO UD PRN PRN Reason: Hypoglycemia Protocol Stop: 04/03/23 03:22
[2023-03-06] MEDS: INSULIN ASPART PER UNIT CHARGE SC SCH ×4 (09:17→20:38)
[2023-03-06] MEDS ORDERED: MELATONIN 3 MG TAB PO PRN (20:15)
[2023-03-06] MEDS: lisinopril 5 MG TAB PO SCH (20:43)
[2023-03-06] MEDS: cefTRIAXone SODIUM 2,000 MG in DEXTROSE 5 % MINI-B 50 ML IV SCH (23:17)
[2023-03-07] MEDS: LEVOTHYROXINE SODIUM 75 MCG TABLET PO SCH (05:35)
[2023-03-07 06:35] LABS: Creatinine Clr Calc Pharmacy 43.4 ml/min; Est GFR (African American) 75.8 ml/min; Est GFR (Non-African American) 65.4 ml/min
[2023-03-07] MEDS: METOPROLOL TARTRATE 25 MG TAB PO SCH (08:56)
[2023-03-07] MEDS: ENOXAPARIN INJ 30 MG/0.3 ML SYR SQ SCH (08:56)
[2023-03-07] MEDS: MAGNESIUM OXIDE 400 MG TAB PO SCH (08:56)
[2023-03-07] MEDS: guaiFENesin 600 MG TABCR PO SCH (08:57)
[2023-03-07] MEDS: INSULIN ASPART PER UNIT CHARGE SC SCH ×2 (09:00→13:00)
--- NOTE | 2023-03-07 16:58 | Discharge Summary ---
Date of Service March 07, 2023 Admission HPI Per Admitting Provider History obtained from patient, family, and records. Limited history from patient secondary to dementia. Medical history significant for PSVT, mild AR, hypertension, hyperlipidemia/statin intolerance DM 2 diet-controlled, hypothyroidism, dementia. Patient noted to have cough symptoms at home the last few days. Unable to expectorate. Increasing weakness. Patient denies chest pain, SOB, abdominal pain, dysuria symptoms. Patient's pulse felt irregular as per patient daughter who is a HYGIENE ASSISTANT. Patient brought to the ER for evaluation. IV ceftriaxone administered at the ER Patient has no recollection of events prior to arrival at the ER. 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 Admission Exam Per Admitting Provider GENERAL: Comfortable, pleasant, demented, no respiratory distress SKIN: Normal color, warm HEENT: [place] palpebral conjunctivae, no ptosis, dry buccal mucosa NECK : Supple, no tenderness CHEST : Decreased breath sounds, no tenderness HEART : Bradycardic, systolic murmur ABDOMEN: Some distention, nontender EXTREMITIES : No LE swelling/tenderness, no other conspicuous deformities noted NEUROLOGIC : Demented, no facial asymmetry, gait and stance not assessed Principal Diagnosis UTI Parainfluenza infection Discharge Exam GENERAL: WD/WN elderly F in NAD SKIN: Normal color, warm HEENT: NC/AT, [place] palpebral conjunctivae, no ptosis NECK : Supple, no tenderness CHEST : Decreased breath sounds, no tenderness HEART : rrr, systolic murmur ABDOMEN: Some distention, nontender EXTREMITIES : No LE swelling/tenderness, moves extremities NEUROLOGIC : awake and alert, pleasantly confused (dementia), no facial asymmetry, speech fluent, moves extremities Discharge Data Allergies Allergy/AdvReac Type Severity Reaction Status Date / Time [id number] Reductase AdvReac Severe muscle pain Verified 03/03/23 20:14 Inhibitor [Lvcoaff-Pnp-Wnw Reductase Inhibitor] risedronate sodium AdvReac Intermediate loss of Verified 03/03/23 20:14 tooth Consultations 03/03/23 22:58 ED Decision to Admit Stat Hospital Course (1) Weakness: Multifactorial Complicated UTI, no sepsis U cultx posit. for E. coli, pansensitive, finished treatment with ceftriaxone +Parainfluenza infection Supportive management for parainfluenza infection Guaifenesin Pt breathing comfortably on RA Irregular pulse possibly from PVCs hx PVST Medical telemetry given arrhythmia concerns metoprolol decreased to 12.5 mg bid d/t bradycardia - cont. to monitor and adjust as necessary mild AR hypertension, BP elevated upon arrival at the ER - started on lisinopril, cont. to monitor Hyperlipidemia/statin intolerance DM 2 diet-controlled, well-controlled as of recent hemoglobin A1c of December 2022 ISS BG goal 110-140, carb count coverage Hypothyroidism, euthyroid as of current TSH level, cont. home levothyroxine Dementia PT OT lucy, CM involved in DC - plan to DC to [facility] Total Time Total Time Spent Total Time Spent (In Minutes): 40 Discharge Plan Discharge Items Patient Disposition: Transfer Inpatient Rehab Fac Reason For Visit: COMP UTI, PVCS, IRREG PULSE Discharge Diagnosis: UTI Parainfluenza infection Activity: Per Instructions section Non-emergency contact: Primary Care Provider Call non-emergency contact if: you have any medication questions and your symptoms worsen Follow-up/Referrals: Taqueria Ronquillo MD [Primary Care Provider] - Diet: Regular Addtl Attending Provider Instructions: Follow up with primary care doctor within 1 week. Decrease your metoprolol to 12.5 mg twice a day. You were started on a blood pressure medication - lisinopril 5 mg - take it daily. Also recommend taking guaifenesin for next few days. Pending Studies at Discharge: No Stand-Alone Forms: My [facility] Skilled Items Patient informed of condition?: Yes DNR: Yes Discharge Level of Care: Acute rehab Communicable Disease: No Discharge Prognosis: Stable Lines: None Urinary Catheter: No Medications and DC Order Prescriptions: New metoprolol tartrate 25 mg Tablet 12.5 mg PO BID Qty: 30 0RF lisinopril [Zestril] 5 mg Tablet 5 mg PO HS Qty: 30 0RF guaifenesin [Mucinex] 600 mg Tablet Extended Release 12hr 600 mg PO Q12 3 Days Qty: 6 0RF Continued levothyroxine 75 mcg tablet 75 mcg PO DAILY Rx Instructions: PER PT'S DAUGHTER "DOESN'T REMEMBER TO TAKE MEDS". cyanocobalamin (vitamin B-12) 1,000 mcg/mL solution 1,000 mcg subcut MONTHLY Rx Instructions: PER PT'S DAUGHTER "HAD THE WEEK OF February,". cholecalciferol (vitamin D3) [Vitamin D3] 50 mcg (2,000 unit) Capsule 50 mcg PO DAILY Rx Instructions: PER PT'S DAUGHTER "DOESN'T REMEMBER TO TAKE MEDS". Discontinued metoprolol tartrate 25 mg tablet 25 mg PO DAILY Rx Instructions: PER PT'S DAUGHTER "DOESN'T REMEMBER TO TAKE MEDS". Discharge Orders: Discharge Order (Routine); Ordered 03/07/23 Ordered By: Omar Martinez Admission Data Admit Date/Time: 03/04/23 01:15 Attending Provider: Omar Martinez Admit Provider: Paolo Harden Primary Care Provider: Taqueria Ronquillo Other Providers: Paolo Harden; [facility] Other Interventions: Discharge Summary Assessment (RN) Last Done: 03/07/23 16:46
== END 2023-03-07 17:14 | DRG 690 ==
LOC: ED 17:19 → EDINP 03-04 01:15 → 2W 03-04 03:22